=== PATIENT | female | born 1970 | race Caucasian/White ===

== ENCOUNTER 2016-12-03 10:15 | Day surgery (SDC) | payer OTHER ==
[2016-11-30 10:37] VITALS: BMI 34.7
[~2016-12-03 10:15] MED LIST: LACTATED RINGERS 1,000 ML IV SCH
[2016-12-03 10:34] VITALS: TEMP 97
[2016-12-03] MEDS ORDERED: LIDOCAINE 1% 20 ML VIAL (10MG/ML) FOR IV START INTRADERMA ONE (10:34)
--- NOTE | 2016-12-03 12:26 | P.PCN ---
Date of Procedure: 12/03/16 Procedure(s) Performed: Procedure: 1. Esophagogastroduodenoscopy and biopsy. 2. Colonoscopy and biopsy. Preoperative diagnosis: Abdominal pain and intermittent diarrhea. Postoperative diagnosis: 1. Mild gastritis. 2. Abnormal ileocecal valve. Preparation: HalfLytely prep. Sedation: Was provided by anesthesia. Brief clinical history: The patient is a 46-year-old female with history of Crohn's disease diagnosed at the time of colonoscopy in 2009 when I performed a colonoscopy during her hospital stay. The patient was treated with asacol but then lost her insurance and tapered her medications and stopped it. She apparently has done well off medications until July 2016 when she presented to the emergency room with abdominal pain. She was restarted on Azulfidine. The patient was evaluated in the office in September 2016 and earlier this month for intermittent abdominal pains and diarrhea. I scheduled this evaluation to assess for other etiology and to guide therapy of her inflammatory bowel disease. Procedure: With the patient on her left lateral decubitus position and after informed consent and adequate sedation, I passed the Olympus-GIF 160 video upper endoscope through the cricopharyngeus down the esophagus. GE junction was around 38 cm from the incisors and there was a small sliding hiatal hernia. The esophagus did not show any obvious esophagitis or complicated reflux disease. The endoscope was then passed into the stomach which was insufflated with air and inspected in detail including the retroflex view in the cardia. There was some mottling and erythema in the antrum but no ulcers or erosions. Pyloric channel, duodenal bulb, post bulbar area and descending duodenum appeared within normal limits. Because of her symptoms I obtained multiple biopsies from the duodenum, antrum and esophagus then the endoscope was withdrawn and I proceeded with the colonoscopy. Perianal area did not show any fissures or fistulas. There were no masses felt on digital rectal examination. The Olympus CFQ 160L video colonoscope was then inserted in the rectum in the usual fashion and advanced to the cecum. No obvious abnormalities were seen in the colon. The ileocecal valve appeared abnormal and somewhat friable and somewhat stenotic not allowing the advancement of the endoscope. There was a small ulceration on the ileocecal valve junction with the colon. I obtained couple blind biopsies from the terminal ileum and random biopsies from the colon before the endoscope was withdrawn. I retroflexed the endoscope in the rectum before it was withdrawn. The patient tolerated the procedure well. Plan: The patient will be seen in the office in follow-up and I anticipate considering her for biologic therapy.
[2016-12-03 12:33] VITALS: BP 132/80; PULSE 78; RESP 18
== END 2016-12-03 13:06 | disposition home or self-care (01) ==
LOC: ORWHC2ENDO 10:15
DX: K44.9 Diaphragmatic hernia without obstruction or gangrene (principal); K52.9 Noninfective gastroenteritis and colitis, unspecified; K20.9 Esophagitis, unspecified; K29.50 Unspecified chronic gastritis without bleeding; K50.90 Crohn's disease, unspecified, without complications; Z79.899 Other long term (current) drug therapy
CPT/HCPCS: 43239; 45380; 81025; 88305; 88342; 99153

== ENCOUNTER → 2017-03-11 | Outpatient (CLI) | payer OTHER ==
--- NOTE | 2017-03-11 16:48 | PN ---
DATE OF SERVICE: 03/11/2017 47-year-old lady who has been followed in the sleep center for treatment of narcolepsy. Presently, she is on treatment with Adderall 10 mg. She is taking regular Adderall and she takes it on p.r.n. basis at the time when she feels extremely ( ). With this regimen, she feels okay. [place] Sleepiness Scale today is 7. Her weight is at about the same range 217 pounds today, last visit was 215. Other medications include ( ). During the physical exam, patient in no distress. VITAL SIGNS: BP 124/90, HR 76, RR 16. Height 5 foot 1/2 inches. Weight 217, BMI 35.5. Temperature 97.4, oxygen saturation at room air 96%. HEENT: PERRLA, EOMI, Evaluation of the oropharynx showed moderately low soft palate. NECK: Supple. No JVD, Thyroid is not palpable. LUNGS: Clear to percussion and to auscultation. Good air exchange. No wheezing or rhonchi. HEART: S1, S2 regular. No murmurs, gallops, or rubs. ABDOMEN: Slightly obese. Soft and nontender. Bowel sounds are present. No organomegaly appreciated. TENTER FRAME OPERATOR: Awake, alert, and oriented x3. Cranial nerves 2 to 7 intact. There is no fasciculation or atrophy noted. No focal deficits observed. IMPRESSION: 1. Narcolepsy. 2. History of Crohn's disease. 3. Patient sometimes still has difficulties to fall asleep and sleep during the night. PLAN: 1. Continue treatment with Adderall 10 mg. 2. Watching and losing weight. 3. Continue to use some psychological techniques for difficulties to initiating and maintain sleep. 4. No driving if feeling any sleepiness. Precautions related to driving. Patient is aware about civil and criminal liability of unsafe driving. 5. Prescription for Adderall. Thank you very much for allowing me to participate in the management of your patient. Sincerely, Ponce Alatorre MD, PhD, FAASM Diplomat of [place] [employer], Sleep Medicine Board by [place] [employer] [place] [employer] Retail Route Supervisor of [facility] [place]
== END | disposition home or self-care (01) ==
LOC: SLEEP 13:24
PROVIDERS: ATTEND Internal Medicine
DX: G47.419 Narcolepsy without cataplexy (principal); Z79.899 Other long term (current) drug therapy

== ENCOUNTER → 2017-06-11 | Day surgery (SDC) | payer OTHER ==
[~2017-06-11] MED LIST changes: +GLUCAGON 1 MG/ML VIAL IM STA; -LACTATED RINGERS 1,000 ML IV SCH
[2017-06-11 10:53] VITALS: BP 127/72; PULSE 96; RESP 18
[2017-06-11 12:31] VITALS: TEMP 97.5
--- NOTE | 2017-06-12 10:37 | MR ---
EXAMINATION TYPE: MR Enterography DATE OF EXAM: 06/11/2017 COMPARISON: NONE HISTORY: 47-year-old female with abdominal pain, Crohn's, incomplete colonoscopy Technique: Multiplanar, multisequence images of the abdomen and pelvis were obtained before and after administration of 18 mL intravenous MultiHance gadolinium contrast. The patient was also administer ed VoLumen small bowel and colonic distention. Enterography protocol was utilized. FINDINGS: There is multifocal bowel inflammation. The most intense involves a 4 cm long ileal segment in the ri ght lower quadrant located 5 cm from the ileocecal valve. This shows moderate circumferential wall th ickening in the mucosal and transmural enhancement. Second area of similar but slightly lesser degree of enhancement involves the terminal ileum for a 3 cm long segment. Mild to moderate irregular ileal wall thickening and transmural enhancement involves a 5 cm long segm ent located approximately 15 cm proximal to the terminal ileum. The colon is also surveyed and there is wall thickening and mucosal and submucosal enhancement involv ing the rectum up to the distal sigmoid. The remainder of the colon appears grossly unremarkable. Scattered small stool balls are present. The appendix is normal. There is mild lower abdominal and pelvic ascites fluid likely reactive to inflammation. A tampon is present. There is arcuate configuration to the uterus with a right lateral fundal 2.1 cm focal fibroid in an intramural location. The ovaries show follicular change. Visualized kidneys, adrenal glands, incompletely visualized liver, pancreas, and spleen show no gross abnormality. No clear evidence for fistula formation and no abscess seen. No obvious lymphadenopathy. IMPRESSION: 1. Multi segmental bowel inflammation. The most intense inflammation involves a 4 cm long distal ilea l segment located 5 cm proximal to the ileocecal valve. 2. Additional moderately inflamed 3 cm long segment at the terminal ileum and a 5 cm long segment loc ated 15 cm proximal to the TI showing mild to moderate inflammation. 3. There is also wall thickening and enhancement of the rectum and distal sigmoid suggesting a concur rent inflammatory colitis. 4. Mild lower abdominal and pelvic ascites likely reactive to the inflammation. 5. No discrete fistula or abscess is identified.
== END ==
LOC: RADMRIMAIN 10:26
DX: K50.90 Crohn's disease, unspecified, without complications (principal); R18.8 Other ascites
CPT/HCPCS: 96372; 72197; 74183; J1610; A9577

== ENCOUNTER → 2017-09-15 | Outpatient (CLI) | payer OTHER ==
[2017-09-15 10:23] LABS: CH 26.3; CHCM 30.9; Hypochromasia Slight; MCH 27.8 pg (25.0-35.0); MCHC 32.5 g/dL (31.0-37.0); MCV 85.6 fL (80.0-100.0); Mean Platelet Volume 7.9; RBC 4.67 m/uL (3.80-5.40); RDW 13.8 % (11.5-15.5); WBC 5.3 k/uL (3.8-10.6)
[2017-09-15 11:06] LABS: ALT 28 U/L (9-52); AST 13 U/L (14-36); Alkaline Phosphatase 57 U/L (38-126); Anion Gap 8 mmol/L; Blood Urea Nitrogen 13 mg/dL (7-17); C Reactive Protein 5.3 mg/L (<10.0); Calcium 9.3 mg/dL (8.4-10.2); Carbon Dioxide 24 mmol/L (22-30); Chloride 108 mmol/L (98-107); Glucose 71 mg/dL (74-99); Non-African American GFR(MDRD) >60 (>60 ml/min/1.73 sqM); Potassium 4.7 mmol/L (3.5-5.1); Sodium 140 mmol/L (137-145); Total Bilirubin 0.4 mg/dL (0.2-1.3); Total Protein 6.4 g/dL (6.3-8.2)
[2017-09-15 12:28] LABS: Erythrocyte Sedimentation Rate 13 mm/hr (0-20)
== END | disposition home or self-care (01) ==
LOC: LABWHC1 09:19
DX: K50.80 Crohn's disease of both small and large intestine without complications (principal)
CPT/HCPCS: 36415; 80053; 80074; 82306; 82542; 82607; 82657; 83993; 85027; 85652; 86140; 86480

== ENCOUNTER → 2017-11-11 | Outpatient (CLI) | payer OTHER ==
[2017-11-11 09:41] LABS: Basophils % (A) 1 %; Eosinophils # (A) 0.1 k/uL (0-0.7); Eosinophils % (A) 2 %; HCT 41.4 % (34.0-46.0); HGB 12.8 gm/dL (11.4-16.0); Lymphocytes # (A) 0.4 k/uL (1.0-4.8); Lymphocytes % (A) 9 %; MCHC 30.9 g/dL (31.0-37.0); MCV 84.4 fL (80.0-100.0); Mean Platelet Volume 7.4; Monocytes # (A) 0.2 k/uL (0-1.0); Monocytes % (A) 3 %; Neutrophils # (A) 3.8 k/uL (1.3-7.7); Neutrophils % (A) 84 %; Platelet Count 383 k/uL (150-450); RBC 4.91 m/uL (3.80-5.40); RDW 14.1 % (11.5-15.5); WBC 4.5 k/uL (3.8-10.6)
[2017-11-11 10:07] LABS: Albumin 3.8 g/dL (3.5-5.0); Bilirubin, Delta 0.2 mg/dL (0.0-0.2); Bilirubin,Unconjugated 0.2 mg/dL (0.0-1.1); Total Bilirubin 0.4 mg/dL (0.2-1.3); Total Protein 6.5 g/dL (6.3-8.2)
== END | disposition home or self-care (01) ==
LOC: LABWHC1 08:53
DX: K50.80 Crohn's disease of both small and large intestine without complications (principal)
CPT/HCPCS: 36415; 80076; 82150; 83690; 85025

== ENCOUNTER → 2018-01-06 | Outpatient (CLI) | payer OTHER ==
[2018-01-06 09:48] LABS: HCT 38.8 % (34.0-46.0); HGB 12.6 gm/dL (11.4-16.0); MCH 26.9 pg (25.0-35.0); MCHC 32.4 g/dL (31.0-37.0); MCV 82.8 fL (80.0-100.0); Mean Platelet Volume 6.7; Platelet Count 418 k/uL (150-450); RBC 4.69 m/uL (3.80-5.40); RDW 13.9 % (11.5-15.5); WBC 4.5 k/uL (3.8-10.6)
[2018-01-06 10:02] LABS: ALT 21 U/L (9-52); AST 14 U/L (14-36); Albumin 3.8 g/dL (3.5-5.0); Alkaline Phosphatase 60 U/L (38-126); Amylase 48 U/L (30-110); Anion Gap 9 mmol/L; Blood Urea Nitrogen 16 mg/dL (7-17); Calcium 9.2 mg/dL (8.4-10.2); Carbon Dioxide 28 mmol/L (22-30); Chloride 105 mmol/L (98-107); Glucose 88 mg/dL (74-99); Lipase 180 U/L (23-300); Potassium 4.3 mmol/L (3.5-5.1); Sodium 142 mmol/L (137-145); Total Bilirubin 0.5 mg/dL (0.2-1.3); Total Protein 6.5 g/dL (6.3-8.2)
== END | disposition home or self-care (01) ==
LOC: LABWHC1 09:17
DX: K50.80 Crohn's disease of both small and large intestine without complications (principal)
CPT/HCPCS: 36415; 80053; 82150; 83690; 85027

== ENCOUNTER → 2018-03-22 | Outpatient (CLI) | payer OTHER ==
[2018-03-22 09:37] LABS: HCT 38.2 % (34.0-46.0); HGB 13.1 gm/dL (11.4-16.0); MCH 28.3 pg (25.0-35.0); MCHC 34.2 g/dL (31.0-37.0); MCV 82.6 fL (80.0-100.0); Mean Platelet Volume 7.1; Platelet Count 315 k/uL (150-450); RBC 4.63 m/uL (3.80-5.40); RDW 13.7 % (11.5-15.5); WBC 4.2 k/uL (3.8-10.6)
[2018-03-22 09:57] LABS: ALT 23 U/L (9-52); AST 14 U/L (14-36); Albumin 3.8 g/dL (3.5-5.0); Alkaline Phosphatase 46 U/L (38-126); Amylase 54 U/L (30-110); Anion Gap 11 mmol/L; Blood Urea Nitrogen 12 mg/dL (7-17); Carbon Dioxide 26 mmol/L (22-30); Chloride 105 mmol/L (98-107); Glucose 76 mg/dL (74-99); Lipase 146 U/L (23-300); Potassium 4.1 mmol/L (3.5-5.1); Sodium 142 mmol/L (137-145); Total Bilirubin 0.4 mg/dL (0.2-1.3); Total Protein 6.1 g/dL (6.3-8.2)
== END | disposition home or self-care (01) ==
LOC: LABWHC1 09:16
DX: K50.80 Crohn's disease of both small and large intestine without complications (principal)
CPT/HCPCS: 36415; 80053; 82150; 82306; 83690; 85027

== ENCOUNTER → 2018-04-14 | Outpatient (CLI) | payer OTHER ==
[2018-04-14 11:05] LABS: Basophils % (A) 1 %; Eosinophils # (A) 0.1 k/uL (0-0.7); Eosinophils % (A) 2 %; HCT 39.2 % (34.0-46.0); HGB 12.8 gm/dL (11.4-16.0); Lymphocytes # (A) 0.4 k/uL (1.0-4.8); Lymphocytes % (A) 9 %; MCH 27.4 pg (25.0-35.0); MCHC 32.6 g/dL (31.0-37.0); MCV 83.9 fL (80.0-100.0); Mean Platelet Volume 7.1; Monocytes # (A) 0.2 k/uL (0-1.0); Monocytes % (A) 6 %; Neutrophils # (A) 3.3 k/uL (1.3-7.7); Neutrophils % (A) 81 %; Platelet Count 306 k/uL (150-450); RBC 4.67 m/uL (3.80-5.40); RDW 13.8 % (11.5-15.5)
== END | disposition home or self-care (01) ==
LOC: LABWHC1 10:38
PROVIDERS: ATTEND Internal Medicine
DX: Z00.00 Encounter for general adult medical examination without abnormal findings (principal)
CPT/HCPCS: 36415; 84443; 85025

== ENCOUNTER → 2018-05-19 | Outpatient (CLI) | payer OTHER ==
--- NOTE | 2018-05-19 17:46 | PN ---
PROGRESS NOTE . DATE OF SERVICE: 05/19/2018 48-year-old lady has been followed in Sleep Center for treatment of narcolepsy. We have followed patient for several years with treatment to Adderall. She is taking Adderall 10 mg in situation when she needs it and when she has to drive. No any side effects of medications. No episodes of tachycardia. No changes of mood. [place] Sleepiness Scale today is 6. The usual sleep schedule is on a regular basis from 11:00 p.m. to 7 a.m. MEDICATIONS: Pristiq and Adderall. PHYSICAL EXAM: The patient in no distress. BP 118/68, HR 79, RR 16, height 5 feet 5 inches, weight 220.0, BMI 36.6, temp 97.4, oxygen saturation on room air 98%. Oropharynx moderately low position of soft palate. Neck Supple, no JVD. Thyroid is not palpable. LUNGS Clear to percussion and to auscultation. Good air exchange. No wheezing or rhonchi. HEART S1, S2 regular. No murmurs, gallops, or rubs. ABDOMEN Soft and nontender. Bowel sounds are present. No organomegaly appreciated. EXTREMITIES No clubbing or cyanosis. QUITLINE COUNSELOR Awake, alert, and oriented X3. Cranial nerves 2 to 7 intact. There is no fasciculation or atrophy. noted. No focal deficits observed. ASSESSMENT: 1. Narcolepsy without cataplexy. 2. History of Crohn's disease. 3. Depressive mood episodes for last 3 weeks. PLAN: 1. Patient will continue to take Adderall 10 mg on a p.r.n. basis for sleepiness. 2. Sleep hygiene with regular time in bed for at least 7 1/2 or 8 hours. 3. No driving if feeling sleepiness. 4. Psychological techniques for insomnia if necessary. Thank you very much for allowing me to participate in management of your patient. Sincerely, Ponce Alatorre MD, PhD, FAASM Diplomat of [place] [employer] Specialties [place] Board of Internal Medicine Maintenance Of Way Superintendent of [facility] [place] MMODL / EMILEN: [id number] /
== END | disposition home or self-care (01) ==
LOC: SLEEP 13:33
PROVIDERS: ATTEND Internal Medicine
DX: G47.419 Narcolepsy without cataplexy (principal); F32.9 Major depressive disorder, single episode, unspecified; Z87.19 Personal history of other diseases of the digestive system; Z79.899 Other long term (current) drug therapy

== ENCOUNTER → 2018-07-20 | Outpatient (CLI) | payer OTHER ==
--- NOTE | 2018-07-20 13:09 | XR ---
Cervical spine HISTORY: Frequent headaches, R 51 5 views of the cervical spine and 6 images Cervical vertebral bodies show preserved height, alignment, and bone mineralization. Disc spaces are maintained. Prevertebral soft tissues are normal. No significant foraminal encroachment evident on ob lique views the exception of some questionable narrowing at C3-4 bilaterally. Lung apices are normal. Open-mouth odontoid view is limited. IMPRESSION: Question some neural foraminal encroachment C3-4, cervical MRI may be of benefit.
== END ==
LOC: RADXRMAIN 09:42
PROVIDERS: ATTEND Internal Medicine
DX: R51 Headache (principal)
CPT/HCPCS: 72050

== ENCOUNTER → 2019-01-12 | Outpatient (CLI) | payer OTHER ==
[2019-01-12 11:02] LABS: HCT 40.4 % (34.0-46.0); HGB 13.1 gm/dL (11.4-16.0); MCHC 32.4 g/dL (31.0-37.0); MCV 86.4 fL (80.0-100.0); Mean Platelet Volume 6.7; Platelet Count 293 k/uL (150-450); RBC 4.68 m/uL (3.80-5.40); RDW 13.3 % (11.5-15.5); WBC 4.4 k/uL (3.8-10.6)
[2019-01-12 11:42] LABS: Erythrocyte Sedimentation Rate 2 mm/hr (0-20)
[2019-01-12 17:38] LABS: ALT 10 U/L (8-44); AST 17 U/L (13-35); Alkaline Phosphatase 56 U/L (41-126); C Reactive Protein <0.4 mg/dL (0.0-0.8); Calcium 9.3 mg/dL (8.7-10.3); Carbon Dioxide 26.3 mmol/L (21.6-31.8); Chloride 107 mmol/L (96-109); Glucose 84 mg/dL (70-110); Potassium 4.4 mmol/L (3.5-5.5); Sodium 139 mmol/L (135-145); Total Bilirubin 0.5 mg/dL (0.3-1.2)
== END ==
LOC: LABWHC1 10:18
DX: K50.80 Crohn's disease of both small and large intestine without complications (principal)
CPT/HCPCS: 36415; 80053; 85027; 85652; 86140

== ENCOUNTER → 2019-06-08 | Outpatient (CLI) | payer OTHER ==
--- NOTE | 2019-06-08 12:33 | SFUN ---
SLEEP CENTER FOLLOW UP NOTE DATE OF SERVICE: 06/08/2019 A 49-year-old lady had been followed in the sleep center for treatment of narcolepsy without cataplexy. The patient is on treatment with Adderall 10 mg. She usually take medication in situation when she has to drive or needs to do some precise activities. No episodes of increasing blood pressure. No episodes of tachycardia. She tolerates medication well. Her usual sleep schedule on the range from about 11 p.m. to 7 a.m. [place] Sleepiness Scale today is 5. MEDICATIONS: Adderall 10 mg and Imuran. PHYSICAL EXAMINATION: During physical exam, patient in no distress. VITAL SIGNS: BP 127/85, HR 70, RR 16, height 5 feet 5 inches, weight 215 pounds, body mass index 35.9, temperature 98.1, oxygen saturation at room air 98%. HEENT: PERRLA, EOMI. Oropharynx moderately low soft palate. NECK: Supple, no JVD. Thyroid is not palpable. LUNGS: Clear to percussion and to auscultation. Good air exchange. No wheezing or rhonchi. HEART: S1, S2 regular. No murmurs, gallops, or rubs. ABDOMEN: Soft and nontender. Bowel sounds are present. No organomegaly appreciated. EXTREMITIES: No clubbing or cyanosis. DIALYSIS CLINICAL MANAGER: Awake, alert, and oriented X3. Cranial nerves 2 to 7 intact. There is no fasciculation or atrophy. noted. No focal deficits observed. IMPRESSION: 1. Narcolepsy without cataplexy. 2. History of Crohn disease. 3. History of depression. 4. Obesity, body mass index 35.9. PLAN: 1. The patient will continue to use Adderall 10 mg a day. 2. Sleep hygiene with regular time in bed for at least 8 hours. 3. Precautions related to driving. No driving if feeling sleepiness. 4. Watching and losing weight. Sincerely, Ponce Alatorre MD, PhD, FAASM Diplomat of [place] [employer] Specialties [place] Board of Internal Medicine Thermal Technician of [facility] [place] MMODL / EMILEN: [id number] /
== END ==
LOC: SLEEP 11:06
PROVIDERS: ATTEND Internal Medicine
DX: G47.419 Narcolepsy without cataplexy (principal); K50.90 Crohn's disease, unspecified, without complications; F32.9 Major depressive disorder, single episode, unspecified; E66.9 Obesity, unspecified; Z68.35 Body mass index [BMI] 35.0-35.9, adult; Z79.899 Other long term (current) drug therapy

== ENCOUNTER → 2019-06-22 | Outpatient (CLI) | payer OTHER ==
[2019-06-22 10:55] LABS: HCT 40.6 % (34.0-46.0); HGB 13.6 gm/dL (11.4-16.0); MCH 28.9 pg (25.0-35.0); MCHC 33.5 g/dL (31.0-37.0); MCV 86.4 fL (80.0-100.0); Platelet Count 298 k/uL (150-450); RDW 14.6 % (11.5-15.5); WBC 4.9 k/uL (3.8-10.6)
[2019-06-22 13:45] LABS: Erythrocyte Sedimentation Rate 8 mm/hr (0-20)
[2019-06-22 15:36] LABS: Vitamin D 25 Hydroxy 27.2 ng/mL (30.0-100.0)
[2019-06-22 15:41] LABS: Folate, Serum 12.1 ng/mL
[2019-06-22 15:51] LABS: ALT 11 U/L (8-44); AST 12 U/L (13-35); African American GFR (CKD) 118.7 (60.0-200.0); Albumin/Globulin Ratio 2.05 (1.60-3.17); Alkaline Phosphatase 60 U/L (41-126); BUN/Creat Ratio 15.71 Ratio (12.00-20.00); C Reactive Protein <0.4 mg/dL (0.0-0.8); Calcium 9.1 mg/dL (8.7-10.3); Carbon Dioxide 22.9 mmol/L (21.6-31.8); Chloride 109 mmol/L (96-109); Glucose 89 mg/dL (70-110); Potassium 4.2 mmol/L (3.5-5.5); Sodium 141 mmol/L (135-145); Total Bilirubin 0.6 mg/dL (0.3-1.2); Total Protein 6.1 g/dL (6.2-8.2)
== END | disposition home or self-care (01) ==
LOC: LABWHC1 10:17
PROVIDERS: ATTEND Physician Assistant
DX: K50.80 Crohn's disease of both small and large intestine without complications (principal)
CPT/HCPCS: 36415; 80053; 82306; 82607; 82746; 85027; 85652; 86140

== ENCOUNTER → 2020-08-27 | Outpatient (CLI) | payer OTHER ==
[2020-08-27 15:31] LABS: HCT 41.7 % (34.0-46.0); HGB 13.5 gm/dL (11.4-16.0); MCH 29.2 pg (25.0-35.0); MCHC 32.3 g/dL (31.0-37.0); MCV 90.1 fL (80.0-100.0); Mean Platelet Volume 7.4; Platelet Count 294 k/uL (150-450); RBC 4.63 m/uL (3.80-5.40); WBC 5.5 k/uL (3.8-10.6)
[2020-08-28 01:22] LABS: Erythrocyte Sedimentation Rate 7 mm/Hr (0-20)
[2020-08-28 05:19] LABS: ALT 11 U/L (8-44); AST 15 U/L (13-35); African American GFR (CKD) 117.9 (60.0-200.0); Alkaline Phosphatase 59 U/L (41-126); BUN/Creat Ratio 18.57 Ratio (12.00-20.00); C Reactive Protein <0.4 mg/dL (0.0-0.8); Calcium 9.4 mg/dL (8.7-10.3); Carbon Dioxide 24.5 mmol/L (21.6-31.8); Chloride 109 mmol/L (96-109); Folate, Serum 15.6 ng/mL; Globulin 2.1 g/dL (1.6-3.3); Glucose 88 mg/dL (70-110); Non-African American GFR(CKD) 101.7 (60.0-200.0); Potassium 4.1 mmol/L (3.5-5.5); Sodium 141 mmol/L (135-145); Total Bilirubin 0.4 mg/dL (0.3-1.2); Total Protein 6.3 g/dL (6.2-8.2)
== END | disposition home or self-care (01) ==
LOC: LABWHC1 14:16
PROVIDERS: ATTEND Internal Medicine
DX: K50.80 Crohn's disease of both small and large intestine without complications (principal)
CPT/HCPCS: 36415; 80053; 82306; 82607; 82746; 85027; 85652; 86140

== ENCOUNTER → 2020-10-09 | Outpatient (CLI) | payer OTHER ==
--- NOTE | 2020-10-09 20:32 | SFUN ---
SLEEP CENTER FOLLOW UP NOTE DATE OF SERVICE: 10/09/2020 50-year-old lady has been followed in Sleep Center for treatment of narcolepsy. The patient is on treatment with Adderall 10 mg in the morning. With this regimen, the patient is able to control her symptoms of excessive daytime sleepiness. Today her [place] Sleepiness Scale is 8. No side effects from medications, no tachycardia, increasing blood pressure. MEDICATIONS: Adderall 10 mg once a day and Azoles 5 GF 100 mg twice a day. PHYSICAL EXAM: Patient in no distress, BP 134/84, HR 68, RR 15, height 5 feet 6 inches, weight 221 pounds, BMI 35.6, temperature 98.0, oxygen saturation on room air 98%. Neck is 13 inches in circumference. NECK: Supple, no JVD. Thyroid is not palpable. LUNGS: Clear to percussion and to auscultation. Good air exchange. No wheezing or rhonchi. HEART: S1, S2 regular. No murmurs, gallops, or rubs. ABDOMEN: Slightly obese. Soft and nontender. Bowel sounds are present. No organomegaly appreciated. EXTREMITIES: No clubbing or cyanosis. TRUCK DISPATCHER: Awake, alert, and oriented X3. Cranial nerves 2 to 7 intact. There is no fasciculation or atrophy. noted. No focal deficits observed. IMPRESSION: 1. Narcolepsy type 2. 2. History of Crohn's disease. 3. History of depression. 4. Obesity. PLAN: 1. Patient will continue to use Adderall 10 mg once a day. 2. Watching and losing weight. 3. Sleep hygiene with regular time in bed for at least 7.5 To 8 hours. 4. Precautions related to driving. 5. No driving if feeling sleepiness. 6. Daytime naps permitted. 7. Follow-up visit in 6 months. Thank you very much for allowing me to participate in management of your patient. Sincerely, Ponce Alatorre MD, PhD, FAASM Diplomat of [place] [employer] Specialties [place] Board of Internal Medicine Brasswind Instrument Repairer of [facility] [place] MMODL / EMILEN: [id number] /
== END | disposition home or self-care (01) ==
LOC: SLEEP 11:37
PROVIDERS: ATTEND Internal Medicine
DX: G47.419 Narcolepsy without cataplexy (principal); Z87.19 Personal history of other diseases of the digestive system; Z86.59 Personal history of other mental and behavioral disorders; E66.9 Obesity, unspecified; Z79.899 Other long term (current) drug therapy

== ENCOUNTER 2020-11-12 08:14 | Day surgery (SDC) | payer OTHER ==
[2020-11-08 11:23] VITALS: BMI 34.7
[~2020-11-12 08:14] MED LIST changes: -GLUCAGON 1 MG/ML VIAL IM STA; +LACTATED RINGERS 1,000 ML IV SCH; +LIDOCAINE 1% (10MG/ML) FOR IV START INTRADERMA PRN
[2020-11-12 08:45] VITALS: TEMP 97.9
[2020-11-12] MEDS ORDERED: PROPOFOL 10 MG/ML 20 ML VIAL IV ONE (09:32)
--- NOTE | 2020-11-12 10:03 | P.PCN ---
Date of Procedure: 11/12/20 Description of Procedure: BRIEF HISTORY: Patient is a 50-year-old female presenting for outpatient colonoscopy for evaluation of Crohn's disease. Patient has a history of Crohn's disease of the small and large bowel diagnosed in 2009 with no prior surgeries or fistulas reported. She did have stricturing disease noted in the past with colonoscopy in 2017 showed active disease and ileocecal valve with MR enterography showing some stricturing disease of the small bowel. Patient has been prescribed Imuran but has previously reported only partial compliance on her symptoms were active. PROCEDURE PERFORMED: Colonoscopy with biopsy. PREOPERATIVE DIAGNOSIS: Crohn's disease, last colonoscopy 2016. ESTIMATED BLOOD LOSS: Minimal. IV sedation per Anesthesia. PROCEDURE: After informed consent was obtained, the patient, was brought into the endoscopy unit. IV sedation was administered by Anesthesia under continuous monitoring. Digital rectal examination was normal. Initially the Olympus CF-190 flexible video colonoscope was then inserted in the rectum, gradually advanced into the cecum without any difficulty. Careful examination was performed as the scope was gradually being withdrawn. Ileocecal valve and the appendiceal orifice were visualized and appeared normal. Prep was excellent. Mucosa of the cecum, ascending colon, transverse colon, descending colon, sigmoid colon, and rectum appeared normal, with random biopsies taken of the right colon, transverse colon, left colon and rectum. The terminal ileum appeared overall normal with only 1 superficial ulceration noted, there is also some benign appearing stricturing approximate 7 cm from the ileocecal valve with no active disease noted except for a 1 superficial ulceration. Retroflexion was performed in the rectum and no lesions were seen. The patient tolerated the procedure well. IMPRESSION: Crohn's disease. 1 superficial terminal ileum ulcer, and some benign appearing stricturing 7 cm from the ileocecal valve, otherwise no active disease noted. Random biopsies taken of the terminal ileum, right colon, transverse colon, left colon and rectum. RECOMMENDATIONS: Findings of this examination were discussed with the patient and her family. Okay to resume diet. Okay to resume medications. Follow-up in the GI clinic as scheduled. Await pathology from biopsies. Recommend repeat colonoscopy in 2 years for Crohn's disease..
[2020-11-12 10:06] VITALS: RESP 16
[2020-11-12 10:24] VITALS: BP 113/72; PULSE 65
== END 2020-11-12 10:53 | disposition home or self-care (01) ==
LOC: ORWHC2ENDO 08:14
PROVIDERS: ATTEND Internal Medicine
DX: K50.80 Crohn's disease of both small and large intestine without complications (principal); K63.3 Ulcer of intestine; F90.9 Attention-deficit hyperactivity disorder, unspecified type; G47.419 Narcolepsy without cataplexy; Z98.890 Other specified postprocedural states; Z87.891 Personal history of nicotine dependence; Z79.899 Other long term (current) drug therapy; Z98.51 Tubal ligation status; Z87.19 Personal history of other diseases of the digestive system
CPT/HCPCS: 45380; 81025; 88305; J2704

== ENCOUNTER → 2020-11-27 | Outpatient (CLI) | payer OTHER ==
[2020-11-27 10:49] LABS: HCT 41.5 % (34.0-46.0); HGB 13.7 gm/dL (11.4-16.0); MCH 28.8 pg (25.0-35.0); MCV 87.3 fL (80.0-100.0); Mean Platelet Volume 7.3; Platelet Count 295 k/uL (150-450); RBC 4.75 m/uL (3.80-5.40); WBC 4.6 k/uL (3.8-10.6)
[2020-11-27 17:15] LABS: Erythrocyte Sedimentation Rate 6 mm/Hr (0-20)
[2020-11-27 17:58] LABS: Folate, Serum 13.3 ng/mL
[2020-11-27 18:35] LABS: ALT 12 U/L (8-44); AST 13 U/L (13-35); African American GFR (CKD) 117.9 (60.0-200.0); Albumin/Globulin Ratio 2.47 (1.60-3.17); Alkaline Phosphatase 67 U/L (41-126); BUN/Creat Ratio 15.71 Ratio (12.00-20.00); C Reactive Protein <0.4 mg/dL (0.0-0.8); Chloride 108 mmol/L (96-109); Globulin 1.7 g/dL (1.6-3.3); Glucose 91 mg/dL (70-110); Non-African American GFR(CKD) 101.7 (60.0-200.0); Potassium 4.4 mmol/L (3.5-5.5); Sodium 141 mmol/L (135-145); Total Bilirubin 0.5 mg/dL (0.2-1.2); Total Protein 5.9 g/dL (6.2-8.2)
== END | disposition home or self-care (01) ==
LOC: LABWHC1 09:53
PROVIDERS: ATTEND Internal Medicine
DX: K50.80 Crohn's disease of both small and large intestine without complications (principal)
CPT/HCPCS: 36415; 80053; 82607; 82652; 82746; 85027; 85652; 86140

== ENCOUNTER → 2021-03-27 | Outpatient (CLI) | payer OTHER ==
--- NOTE | 2021-03-27 19:47 | SFUN ---
SLEEP CENTER FOLLOW UP NOTE DATE OF SERVICE: 03/27/2021 This 51-year-old lady has been followed in Sleep Center for treatment of narcolepsy. The patient continues treatment with Adderall 10 mg in the morning. She is able to control her symptoms of excessive daytime sleepiness with this regimen, although she still feels sleepy sometimes during the day. [place] Sleepiness Scale today is 7. No significant side effects from Adderall. Recently during colonoscopy for Crohn's disease she was found to have a polyp with some abnormalities, which was removed. MEDICATIONS: 1. Adderall 10 mg once a day. 2. Azathioprine twice a day. PHYSICAL EXAMINATION: GENERAL: A pleasant patient in no distress. VITAL SIGNS: BP 123/83, HR 69, RR 15, height 5 feet 6 inches, weight 213.4 pounds, temperature 98.4, oxygen saturation at room air 98%. Body mass index 34.4, HEENT: PERRLA, EOMI. Evaluation of oropharynx showed tongue protrudes midline. NECK: Supple. No JVD. Thyroid is not palpable. LUNGS: Clear to percussion and to auscultation. Good air exchange. No wheezing or rhonchi. HEART: S1, S2 regular. No murmurs, gallops or rubs. ABDOMEN: Slightly obese. EXTREMITIES: No clubbing or cyanosis. SUPERVISOR FACEPIECE LINE: Awake, alert, and oriented X3. Cranial nerves 2 to 7 intact. There is no fasciculation or atrophy. noted. No focal deficits observed. IMPRESSION: 1. Narcolepsy. 2. Without cataplexy. 3. History of Crohn's disease. 4. Status post polypectomy from the colon. 5. History of depression. 6. Obesity. BMI 34.3. 7. Back problems. PLAN: 1. Patient will continue to take Adderall 10 mg p.o. every morning. 2. Sleep hygiene with regular time in bed for 7-1/2 to 8 hours. 3. Daytime naps permitted. 4. Extreme precautions for driving. No driving if feeling any sleepiness. The patient is aware of civil and criminal liability for unsafe driving. 5. Psychological techniques for treatment of insomnia if necessary. 6. Follow-up visit in 6 months. I spent more than 30 minutes with the patient and for documentation. Sincerely, Ponce Alatorre MD, PhD, FAASM Diplomat of [place] [employer] Medical Specialties [place] [employer] of Internal Medicine Unit Aid of [facility] [place] MMLOIL / EMILEN: [id number] /
== END ==
LOC: SLEEP 13:45
PROVIDERS: ATTEND Internal Medicine
DX: G47.419 Narcolepsy without cataplexy (principal); F32.9 Major depressive disorder, single episode, unspecified; E66.9 Obesity, unspecified; M79.89 Other specified soft tissue disorders; Z87.19 Personal history of other diseases of the digestive system; Z86.010 Personal history of colon polyps; Z68.34 Body mass index [BMI] 34.0-34.9, adult; Z79.899 Other long term (current) drug therapy; Z87.891 Personal history of nicotine dependence

== ENCOUNTER → 2021-10-08 | Outpatient (CLI) | payer OTHER ==
--- NOTE | 2021-10-08 19:19 | SFUN ---
SLEEP CENTER FOLLOW UP NOTE DATE OF SERVICE: 10/08/2021 51-year-old lady has been followed in Sleep Center for treatment of narcolepsy. The patient continued treatment with Adderall. With the medication, she controls episodes of sleepiness. [place] Sleepiness Scale is 9. Some days when she is staying at home she may stay without medication. No side effects of Adderall. MEDICATION: Adderall 10 mg once a day, 50 mg once a day. PHYSICAL EXAMINATION: GENERAL: Patient in no distress. BP 114/84, HR 70, RR 15, height 5 feet 5 inches, weight 211.8, temperature 96.9. Oxygen saturation at room air 99%. NECK: Supple, no JVD. Thyroid is not palpable. LUNGS: Clear to percussion and to auscultation. Good air exchange. No wheezing or rhonchi. HEART: S1, S2 regular. No murmurs, gallops, or rubs. ABDOMEN: Soft and nontender. Bowel sounds are present. No organomegaly appreciated. EXTREMITIES: No clubbing or cyanosis. SCRAP IRON CUTTER: Awake, alert, and oriented X3. Cranial nerves 2 to 7 intact. There is no fasciculation or atrophy. noted. No focal deficits observed. IMPRESSION: 1. Narcolepsy type 2. 2. History of Crohn's disease. 3. History of depression. 4. History of some polyps in the colon, status post polypectomy. 5. Mild obesity, BMI 35.1. 6. Back problems. PLAN: 1. Continue Adderall 10 mg in the morning. 2. Sleep hygiene with regular time in bed for at least 7-1/2 to 8 hours. 3. Precautions related to driving. No driving if feeling sleepiness. 4. Daytime naps permitted. Sincerely, Ponce Alatorre MD, PhD, FAASM Diplomat of [place] [employer] Specialties Sleep Medicine Board of [place] Board of Internal Medicine Investments Manager of [facility] [place] MMODL / IJN: [id number] /
== END ==
LOC: SLEEP 15:55
PROVIDERS: ATTEND Internal Medicine
DX: G47.411 Narcolepsy with cataplexy (principal); F32.A Depression, unspecified; E66.9 Obesity, unspecified; M53.80 Other specified dorsopathies, site unspecified; Z68.35 Body mass index [BMI] 35.0-35.9, adult; Z87.19 Personal history of other diseases of the digestive system; Z98.890 Other specified postprocedural states; Z87.891 Personal history of nicotine dependence

== ENCOUNTER → 2022-04-22 | Outpatient (CLI) | payer OTHER ==
--- NOTE | 2022-04-22 13:33 | P.PN ---
Subjective DATE: 04/22/2022 FOLLOW UP VISIT. 52-year-old lady has been followed in sleep center for treatment of narcolepsy type II. Patient is on treatment with Adderall 10 mg once a day in the morning with this regimen sometimes she feels sleepiness during the day but usually her sleepiness is under control. [place] sleepiness scale is 7. No side effects of Adderall, no episodes of cataplexy. MEDICATIONS:1. Adderall 10 mg once a day 2. Asathioprine 50 mg once a day During physical exam: GENERAL: A pleasant patient without any distress. VITAL SIGNS: BP 108/75, HR 65, RR 16, weight 201.4 patient lost 10 pounds, temperature 97.5, oxygen saturation at room air 97%. HEENT: PERRLA, EOMI.low position of soft palate. NECK: Supple. No JVD. LUNGS: Clear to percussion and to auscultation. Good air exchange. No wheezing or rhonchi. HEART: S1, S2 regular. ABDOMEN: Soft and nontender.[] EXTREMITIES: No clubbing or cyanosis. CONTRACTS OFFICER: Awake, alert, and oriented x3. No focal deficit. Impressions: 1. Narcolepsy type II 2. History of Crohn disease. 3. History of depression. 4. Status post polypectomy from colon. 5. Back problems. 6. Left hip problems. 7. Mild obesity body mass index 33.4. Patient lost 10 pounds since previous visit Plan: 1. Patient will continue to take Adderall 10 mg once a day in the morning. 2. Sleep hygiene with regular time in bed for at least 8 hours. 3. Precautions related to driving. No driving if feel any sleepiness. 4. Daytime naps permitted. 8. Follow up visit in 6 months or earlier if patient has any problems. 9. Watching weight. Thank you very much for allowing me to participate in the management of your patient. Ponce Alatorre MD, PhD, FAASM. Diplomat of [place] [employer], Sleep Medicine Board by [place] [employer] Medicine Curator of [facility] [place]
== END ==
LOC: SLEEP 13:04
PROVIDERS: ATTEND Internal Medicine
DX: G47.419 Narcolepsy without cataplexy (principal); F32.A Depression, unspecified; Z87.19 Personal history of other diseases of the digestive system; Z98.890 Other specified postprocedural states; M53.80 Other specified dorsopathies, site unspecified; E66.9 Obesity, unspecified; Z68.33 Body mass index [BMI] 33.0-33.9, adult; Z79.899 Other long term (current) drug therapy; Z87.891 Personal history of nicotine dependence

== ENCOUNTER → 2023-02-17 | Outpatient (CLI) | payer OTHER ==
--- NOTE | 2023-02-17 15:59 | P.PN ---
Subjective DATE: 02/17/2023 FOLLOW UP VISIT. Patient returned to sleep center for follow-up visit related to treatment of significant excessive daytime sleepiness secondary to narcolepsy. Patient is on treatment with Adderall 10 mg in the morning. Recently she sleeps worse because of pain in showed a left hip during the night. Here sleepiness increased. She now feel more sleepy during after known time which did not happen before. .[place] sleepiness scale is increased to 13. MEDICATIONS:1. Adderall 10 mg once a day 2. Gabapentin 100 mg as needed 3. Azathioprine 50 mg twice a day During physical exam: GENERAL: A pleasant patient without any distress. VITAL SIGNS: BP 134/87, HR 73, RR 12 , weight 205.8, temperature 97.6, oxygen saturation at room air 100% . HEENT: PERRLA, EOMI. NECK: Supple. No JVD. LUNGS: Clear to percussion and to auscultation. Good air exchange. No wheezing or rhonchi. HEART: S1, S2 regular. ABDOMEN: Soft and nontender. EXTREMITIES: No clubbing or cyanosis. SURVEILLANCE OBSERVER: Awake, alert, and oriented x3. No focal deficit. Impressions: 1. Narcolepsy type II 2. Back problems. 3. History of Crohn disease. 4. Status post polypectomy from colon. 5. History of depression. Plan: 1. Patient will continue treatment with Adderall 10 mg, we will increase dose to twice a day, 1 tablet in the morning and second tablet around 1-2 PM . 2. Sleep hygiene with regular time in bed for at least 8 hours. 3. Daytime naps permitted 4. Precautions related to driving. No driving if feel any sleepiness. Patient is aware about civil and criminal liability for unsafe driving, promised to follow recommendations. 5. Follow up visit in 4-6 months or earlier if patient has any problems. Thank you very much for allowing me to participate in the management of your patient. Ponce Alatorre MD, PhD, FAASM. Diplomat of [place] [employer], Sleep Medicine Board by [place] [employer] Press Puller of [facility] [place]
== END ==
LOC: SLEEP 15:23
PROVIDERS: ATTEND Internal Medicine
DX: G47.419 Narcolepsy without cataplexy (principal); K50.90 Crohn's disease, unspecified, without complications; M54.9 Dorsalgia, unspecified; F32.A Depression, unspecified; Z90.49 Acquired absence of other specified parts of digestive tract; Z87.891 Personal history of nicotine dependence
CPT/HCPCS: 99212

== ENCOUNTER → 2023-09-01 | Outpatient (CLI) | payer OTHER ==
--- NOTE | 2023-09-01 16:19 | P.PN ---
Subjective DATE: 09/01/2023 FOLLOW UP VISIT. Patient returned to sleep center for follow-up visit related to treatment of significant excessive daytime sleepiness secondary to narcolepsy. Patient is on treatment with Adderall 10 mg twice a day and with this regimen her alertness is on control. . [place] sleepiness scale is 9, which is borderline. MEDICATIONS:1. Azathioprine 50 mg twice a day 2. Adderall 10 mg twice a day During physical exam: GENERAL: A pleasant patient without any distress. VITAL SIGNS: BP 155/93, HR 80, RR 16 , weight 194.8, temperature 97.9, oxygen saturation at room air 100% . HEENT: PERRLA, EOMI. NECK: Supple. No JVD. LUNGS: Clear to percussion and to auscultation. Good air exchange. No wheezing or rhonchi. HEART: S1, S2 regular. ABDOMEN: Soft and nontender. EXTREMITIES: No clubbing or cyanosis. 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 No focal deficit. Impressions: 1. Narcolepsy type II 2. History of Crohn disease. 3. Blood pressure increased in the office today. 4. Back problems. 5. Status post polypectomy from the colon. 6. History of depression. Plan: 1. Patient will continue treatment with Adderall 10 mg twice a day 2. Sleep hygiene with regular time in bed for at least 8 hours. 3. Daytime naps permitted 4. Precautions related to driving. No driving if feel any sleepiness. Patient is aware about civil and criminal liability for unsafe driving, promised to follow recommendations. 5. Follow up visit in 4-6 months or earlier if patient has any problems. 6. Bradycardia during blood pressure, low sodium diet. Thank you very much for allowing me to participate in the management of your patient. Ponce Alatorre MD, PhD, FAASM. Diplomat of [place] [employer] Medicine, Sleep Medicine Board by [place] [employer] Bleach Mixer of [facility] [place]
== END ==
LOC: 3 N SLEEP 15:33
PROVIDERS: ATTEND Internal Medicine
DX: G47.419 Narcolepsy without cataplexy (principal); K50.90 Crohn's disease, unspecified, without complications; R03.0 Elevated blood-pressure reading, without diagnosis of hypertension; M51.9 Unspecified thoracic, thoracolumbar and lumbosacral intervertebral disc disorder; F32.A Depression, unspecified; Z86.010 Personal history of colon polyps; Z87.891 Personal history of nicotine dependence
CPT/HCPCS: 99212

== ENCOUNTER → 2023-10-27 | Outpatient (CLI) | payer OTHER ==
--- NOTE | 2023-10-27 14:26 | MM ---
Reason for Exam: Characterization of a palpable mass. Patient History: Menarche at age 13. First Full-Term at age 37. Late child-bearing (after 30). Perimenopausal. Risk Values: Lisset 5 year model risk: 1.5%. NCI Lifetime model risk: 11.8%. Tissue Density: There are scattered fibroglandular densities. Findings: Analyzed By CAD. There is a mass in the left breast best appreciated on MLO view approximately 22 cm from the nipple measuring up to 33 x 30 mm in the upper outer quadrant. Additionally there is some lymph nodes which may be enlarged and are only partially in the ujeun-eo-moed. Another lesion is identified in the left breast which is vague density on left CC view measuring 25 x 23 mm and approximately 19 cm from the nipple. The right breast demonstrates focal masslike fibroglandular tissue 19th wrist the nipple measuring 18 x 30 mm. Overall Assessment: Incomplete: need additional imaging evaluation, BI-RAD 0 Management: Diagnostic Breast Ultrasound of both breasts. Results were given to the patient verbally at the time of exam. Patient should continue monthly self-breast exams. A clinical breast exam by your physician is recommended on an annual basis. This exam should not preclude additional follow-up of suspicious palpable abnormalities. Note on Lisset scores and lifetime risk: 1. A Lisset score greater than 3% is considered moderate risk. If this is the case, consider specialist referral to assess eligibility for a risk reducing agent. 2. If overall lifetime risk for the development of breast cancer is 20% or higher, the patient may qualify for future screening with alternating mammogram and breast MRI. Electronically signed and approved by: Christo Trinh DO
--- NOTE | 2023-10-29 11:30 | USB ---
EXAM: US breast limited BILAT DATE OF EXAM: 10/27/2023 2:37 PM COMPARISON STUDIES: Same day mammogram PATIENT HISTORY: Female, 53 years old with history of N63. breast lump/mass; RISK CALCULATION: FINDINGS: Technique utilized:US breast limited BILAT Image; Ultrasound imaging of: Area of concern, retroareolar region and axilla. There is a mass at 1:00 14 Yimi a nipple measuring 24 x 29 x 27 mm which is taller than wide. In the axilla there is irregular shaped lymph node with an exophytic portion which may be an adjacent lymph node versus lung malignancy. Cortex with at least 2 lymph nodes possibly 3 lymph nodes which are greater than 3 mm. Right breast 10:00 at 12 cm from the nipple is a focal area of likely fibroglandular tissue. ASSESSMENT: 5 - Highly Suggestive of Malignancy RECOMMENDATION: 1. Ultrasound Core Biopsy Left . COMMENTS: Multi site biopsy of the left breast including at least one lymph node and the dominant mass. PET/CT also recommended with oncologic workup. A clinical breast exam by your physician is recommended on an annual basis and results should be correlated with mammographic findings. This exam should not preclude additional follow-up of suspicious palpable abnormalities. Results were given to the patient verbally at the time of exam. Called Dr. Merida's office with mammographic findings. Patient to make own follow up appointment. Biopsy scheduled for 11/10/23 at 10:30. REPORT FAXED TO DR. MERIDA ON 10/29/23. [facility]
== END | disposition home or self-care (01) ==
LOC: RADMAMWWP 13:42
PROVIDERS: ATTEND Family Medicine
DX: N63.21 Unspecified lump in the left breast, upper outer quadrant (principal); R92.323 Mammographic fibroglandular density, bilateral breasts
CPT/HCPCS: 77066; 76642; G0279; 77062

== ENCOUNTER → 2023-11-10 | Day surgery (SDC) | payer BC, OTHER ==
--- NOTE | 2023-11-17 14:10 | MM ---
Reason for Exam: Post Procedure Mammogram. Last screening mammogram was performed less than 1 month ago. Patient History: Menarche at age 13. First Full-Term at age 37. Late child-bearing (after 30). Perimenopausal. Risk Values: Lisset 5 year model risk: 1.5%. NCI Lifetime model risk: 11.8%. Prior Study Comparison: 10/27/2023 Bilateral MG 3D diag mammo w/cad [facility], [facility]. Tissue Density: Left: There are scattered fibroglandular densities. Pathology Description: Location: axillary tail. Marker Left Behind. Needle Type: Celero Cores: 3 Gauge: 12 Pathology Description: Location: 1 o'clock. Marker Left Behind. Needle Type: Mammotome Cores: 6 Skin Nicks: 1 Gauge: 13 The procedure of ultrasound guided core biopsy was explained to the patient. Benefits, alternatives, and risks were discussed. An informed consent was then obtained. A timeout was performed. The patient was placed in supine positioning for imaging and for the procedure. The overlying skin was prepped and draped in usual sterile fashion. Lidocaine was used as anesthetic into the skin and subcutaneous tissue up to area of concern in the left breast. A small skin jono was made with surgical scalpel. Under ultrasound guidance, a 12-gauge vacuum assisted biopsy gun device was used to obtain 6 core samples. A biopsy clip was left in lesion. Hydromark wing clip core marker was placed. The patient was placed in supine positioning for imaging and for the procedure. The overlying skin was prepped and draped in usual sterile fashion. Lidocaine was used as anesthetic into the skin and subcutaneous tissue up to area of concern in the left axilla. No skin jono was made with surgical scalpel. Under ultrasound guidance, a 12-gauge vacuum assisted biopsy gun device was used to obtain 3 core samples. A biopsy clip was left in lesion. Hydromark butterfly clip core marker was placed. The patient tolerated the procedure well without any immediate complication. The patient was kept in the radiology department for short stay after the procedure and then discharged home in stable condition. Postprocedure mammogram: The patient was transferred to mammography for physician ordered post procedure mammogram for clip placement verification. Impression: Successful ultrasound guided core biopsy of area of concern in the left breast and left axilla, full pathology results to follow. Recommendations: 1. Recommendations are pending pathology results. Pathology Results: Result: Malignant, Invasive ductal carcinoma. A. LEFT BREAST, ONE O'CLOCK, ULTRASOUND GUIDED CORE BIOPSY: Invasive carcinoma, grade 2 based on current assessment of available tissue (see Surgical Pathology Cancer Case Summary and Comment). Final assessment pending E-cadherin and prognostic staining with an addendum report to follow with stain results. B. DESIGNATED "LEFT AXILLA LYMPH NODE", ULTRASOUND GUIDED CORE BIOPSY: Positive for metastatic mammary carcinoma with focal lymphoid tissue present (see comment). ADDENDUM REPORT A. LEFT BREAST, 1:00, ULTRASOUND GUIDED CORE BIOPSY: Invasive ductal carcinoma (see comment and cancer case summary previously reported). B. LYMPH NODE, LEFT AXILLA, ULTRASOUND GUIDED CORE BIOPSY: Positive for metastatic mammary ductal carcinoma with focal lymphoid tissue present (see comment). Overall Assessment: Malignant Assessment: MG diagnostic mammo LT wo CAD. - Left: Known biopsy proven malignancy, BI-RAD 6. Management: Surgical Consultation of the left breast. Electronically signed and approved by: Alexandro Summers D.O. Radiologis
== END ==
LOC: RADUSWWP 10:18
PROVIDERS: ATTEND Family Medicine
DX: C50.212 Malignant neoplasm of upper-inner quadrant of left female breast (principal)
CPT/HCPCS: 88305; 88342; 88341; 77065; 19083; 19084; A4648

== ENCOUNTER → 2023-11-26 | Outpatient (CLI) | payer BC, OTHER ==
--- NOTE | 2023-11-30 10:58 | PE ---
EXAMINATION TYPE: PET CT fusion skull to thigh DATE OF EXAM: 11/26/2023 COMPARISON: No pertinent recent CT comparison Prior PET/CT: None at this location HISTORY: Breast cancer TECHNIQUE: Following the intravenous administration of 8.73 mCi of F-18 FDG, whole body images are p erformed from the skull base to the midthigh. Images are reviewed on the computer in the coronal, ax ial, and sagittal planes. Reconstructed rotating images are created on independent workstation and r eviewed on the computer. A localization and attenuation correction CT is performed in conjunction w ith the PET scan. DLP: 680.15 mGycm SCAN: Initial Blood glucose: 98 mg/dL Average Mediastinum SUV: 2.26 Average Liver SUV: 3.23 FINDINGS: NECK: No abnormal uptake THORAX: There are multiple hyperintense left axillary lymph nodes. Example image 71, SUV 6.44, , imag e 82, medial SUV 8.57. Mediastinal lymphadenopathy is present in the periaortic and pretracheal space s. Example image 77, periaortic lymph node 8.31, pretracheal lymph node 7.13 prominent pretracheal ly mphadenopathy is present in the precarinal space with an SUV of 9.74. Left hilar adenopathy image 82 has an SUV of 8.65. Subcarinal lymphadenopathy has an SUV of 13.32. Right infrahilar adenopathy is pr esent measuring 8.04 image 86 Patient's left breast cancer is evident with an SUV of 9.08. ABDOMEN: There are multiple scattered foci of uptake within the liver. Example image 108 SUV 10.02 me dial right upper lobe liver. This includes left lobe liver, image 124, SUV 8.94. PELVIS: Osseous metastasis within the pelvis. Soft tissue metastasis are not identified. OSSEOUS STRUCTURES: Bilateral humeral diaphyseal metastasis evident. Osseous metastasis within the lo wer cervical spine is present C7. Multiple rib metastases are present. Uptake is noted within scatter ed thoracic and lumbar vertebral bodies. Iliac metastatic lesions are present bilaterally. Some sacra l metastases are evident. Left hip metastasis and left pubic ramus metastasis present. Metaphyseal fe moral prostheses are present. LOCALIZATION CT: Mediastinal adenopathy is evident. The axillary adenopathy is evident. Patient's bio psied left breast cancer is identified. Osseous metastases are under represented on the CT although s ome of the larger lytic lesions are evident. COMPARISON: None IMPRESSION: 1. Left breast neoplasm identified with hyperintense uptake. 2. Others extensive metastasis within the mediastinum lymph nodes and left axillary lymph nodes. This is in both left and right hilar regions as well. 3. Extensive metastasis throughout the osseous structures. 4. Multiple bilateral liver lobe lesions compatible with metastasis.
== END | disposition home or self-care (01) ==
LOC: RADPETMAIN 10:19
PROVIDERS: ATTEND Family Medicine
DX: C77.9 Secondary and unspecified malignant neoplasm of lymph node, unspecified (principal); C79.51 Secondary malignant neoplasm of bone; C50.612 Malignant neoplasm of axillary tail of left female breast; K76.9 Liver disease, unspecified
CPT/HCPCS: 78815; A9552

== ENCOUNTER → 2023-12-13 | Outpatient (CLI) | payer BC, OTHER ==
--- NOTE | 2023-12-13 20:22 | MR ---
EXAMINATION TYPE: MR brain wo/w con DATE OF EXAM: 12/13/2023 COMPARISON: None HISTORY: Breast cancer, vision changes TECHNIQUE: Multiplanar, multisequence images of the brain and brainstem is performed without and with IV contras t, utilizing 8.5 mL intravenous Gadavist . FINDINGS: On the T1-weighted sagittal images, the midline structures including the craniovertebral junction rel ationships appear normal. The ventricles, basal cisterns and sulci over the convexities are within normal limits and there is n o mass effect or shift of midline structures No abnormal signal intensity is seen throughout the brain parenchyma. Based on diffusion-weighted ugo ging, there is no diffusion restriction or acute ischemic event. Following contrast administration, there is no pathological enhancement. The posterior fossa including the brainstem, fourth ventricle and cerebellar pontine angles appear no rmal. Intraorbital contents are normal and symmetric. Visualized paranasal sinuses and mastoid air cells ar e well aerated. IMPRESSION: No significant abnormality seen. No evidence of metastatic disease.
== END | disposition home or self-care (01) ==
LOC: RADMRIMAIN 19:31
PROVIDERS: ATTEND Internal Medicine
DX: C50.412 Malignant neoplasm of upper-outer quadrant of left female breast (principal); I69.998 Other sequelae following unspecified cerebrovascular disease
CPT/HCPCS: 70553; A9585

== ENCOUNTER → 2023-12-15 | Outpatient (CLI) | payer BC, OTHER ==
--- NOTE | 2023-12-16 10:57 | CA ---
Transthoracic Echo Report Name: Svetlana Manuel Age: 53 Gender: F : 1970 Exam Date: 12/15/2023 15:33 Exam Location: [facility] Ht (in): 66 Wt (lb): 188 Ordering Physician: Quique Christopher MD Attending/Referring Phys: Co Founder And Chief Strategy Officer Evi Licea RDCS Procedure CPT: Indications: [id number] Cardiac Hx: Technical Quality: Good Contrast 1: Total Dose (mL): Contrast 2: Total Dose (mL): MEASUREMENTS (Male / Female) Normal Values 2D ECHO LV Diastolic Diameter PLAX 4.6 cm 4.2 - 5.9 / 3.9 - 5.3 cm LV Systolic Diameter PLAX 3.3 cm IVS Diastolic Thickness 1.1 cm 0.6 - 1.0 / 0.6 - 0.9 cm LVPW Diastolic Thickness 1.1 cm 0.6 - 1.0 / 0.6 - 0.9 cm LV Relative Wall Thickness 0.5 RV Internal Dim ED PLAX 3.3 cm LA Systolic Diameter LX 3.9 cm 3.0 - 4.0 / 2.7 - 3.8 cm LV Diastolic Volume MOD 4C 144.1 cm??? LV Systolic Volume MOD 4C 69.4 cm??? LV Ejection Fraction MOD 4C 51.8 % LV Cardiac Index MOD 4C 2960.1 cm???/min???m??? LV Diastolic Length 4C 8.3 cm LV Systolic Length 4C 6.9 cm LV Diastolic Volume MOD 2C 120.1 cm??? LV Systolic Volume MOD 2C 60.0 cm??? LV Ejection Fraction MOD 2C 50.0 % LV Cardiac Index MOD 2C 2381.3 cm???/min???m??? LV Diastolic Length 2C 8.5 cm LV Systolic Length 2C 6.9 cm LA Volume 48.7 cm??? 18 - 58 / 22 - 52 cm??? LA Volume Index 24.1 cm???/m??? 16 - 28 cm???/m??? M-MODE Aortic Root Diameter MM 3.2 cm MV E Point Septal Separation 1.3 cm AV Cusp Separation MM 2.2 cm DOPPLER AV Peak Velocity 131.8 cm/s AV Peak Gradient 7.0 mmHg MV Area PHT 2.7 cm??? Mitral E Point Velocity 88.5 cm/s Mitral A Point Velocity 79.3 cm/s Mitral E to A Ratio 1.1 MV Deceleration Time 284.1 ms MV E' Velocity 7.7 cm/s Mitral E to MV E' Ratio 11.5 TR Peak Velocity 200.6 cm/s TR Peak Gradient 16.1 mmHg Right Ventricular Systolic Press 21.1 mmHg FINDINGS Left Ventricle Left ventricular ejection fraction is estimated at 55-60 %. Mildly increased septal wall thickness. Mildly increased posterior wall thickness. Left ventricular cavity size normal. Right Ventricle Mild right ventricular dilatation. Right ventricular systolic pressure within normal limits. Right Atrium Normal right atrial size. Left Atrium Normal left atrial size. Mitral Valve Structurally normal mitral valve. No mitral stenosis, regurgitation or prolapse. Aortic Valve Trileaflet aortic valve. No aortic valve stenosis or regurgitation. Tricuspid Valve Structurally normal tricuspid valve. Mild tricuspid regurgitation. Pulmonic Valve Structurally normal pulmonic valve. No pulmonic regurgitation. Pericardium No pericardial effusion. Aorta Normal size aortic root and proximal ascending aorta. CONCLUSIONS Left ventricular ejection fraction 55-60% Mild increased left ventricular wall thickness RVSP 21 No mitral regurgitation Mild tricuspid regurgitation Previewed by: Dr. Kadeem Kee DO (Electronically Signed) Final Date: 16 December 2023 10:56
== END | disposition home or self-care (01) ==
LOC: RADECHMAIN 15:31
PROVIDERS: ATTEND Internal Medicine
DX: Z01.818 Encounter for other preprocedural examination (principal); I36.1 Nonrheumatic tricuspid (valve) insufficiency; I51.89 Other ill-defined heart diseases
CPT/HCPCS: 93306

== ENCOUNTER → 2024-03-03 | Outpatient (CLI) | payer BC ==
--- NOTE | 2024-03-03 19:28 | US ---
EXAMINATION TYPE: US venous doppler duplex UE LT DATE OF EXAM: 03/03/2024 COMPARISON: NONE CLINICAL INDICATION: Female, 54 years old with history of R22.32 LOCALIZED SWELLING, MASS AND LUMP, L EFT upper extremity. Stage 4 breast CA with lymph node involvement, swelling in left arm, no h/o dvt, on chemo SIDE PERFORMED: Left Left Arm: Negative for DVT IMPRESSION: Grayscale, color doppler, spectral doppler imaging performed of the deep veins of the upper extremiti es. There is normal flow, compressibility and vascular waveforms. Left thyroid is negative for intravenous thrombosis.
== END | disposition home or self-care (01) ==
LOC: RADUSWWP 10:01
PROVIDERS: ATTEND Internal Medicine
DX: R22.32 Localized swelling, mass and lump, left upper limb (principal); C50.912 Malignant neoplasm of unspecified site of left female breast; M79.622 Pain in left upper arm; M79.89 Other specified soft tissue disorders

== ENCOUNTER 2024-03-06 11:52 | Emergency (ER) | payer BC ==
[2024-03-06 12:06] VITALS: RESP 20; TEMP 97.2
--- NOTE | 2024-03-06 12:37 | ED ---
General Adult HPI - General Chief complaint: Abdominal Pain Stated complaint: Pain, cancer PT Time Seen by Provider: 03/06/24 12:00 Source: patient, RN notes reviewed, old records reviewed Mode of arrival: ambulatory Limitations: no limitations - History of Present Illness Initial comments: This is a 54-year-old female with a past medical history significant for Crohn's and stage IV breast cancer. Patient had chemo on . Patient states she started having abdominal pain on Wednesday. Patient states it feels typical of her Crohn's but since it is not going away she decided to come to the emergency department to be evaluated. Patient states she has had improvement over the last couple of days but is still there so she wanted to be evaluated. Patient denies any vomiting. Patient is any diarrhea or bloody stools. Patient [place] any chest pain difficulty breathing shortness of breath. Patient has any fever or chills. - Related Data Home Medications Medication Instructions Recorded Confirmed Loperamide HCl [Imodium A-D] 2 - 4 mg PO QID PRN 03/06/24 03/06/24 traMADol HCL 50 mg PO Q8H PRN 03/06/24 03/06/24 Previous Rx's Medication Instructions Recorded predniSONE [Deltasone] 40 mg PO DAILY #10 tab 03/06/24 Allergies Allergy/AdvReac Type Severity Reaction Status Date / Time No Known Allergies Allergy Verified 03/06/24 14:49 Review of Systems ROS Statement: Those systems with pertinent positive or pertinent negative responses have been documented in the HPI. ROS Other: All systems not noted in ROS Statement are negative. Past Medical History Past Medical History: Cancer Additional Past Medical History / Comment(s): crohns disease, narcolepsy, VARICOSE VEIN, Breast CA. History of Any Multi-Drug Resistant Organisms: None Reported Past Surgical History: Section Additional Past Surgical History / Comment(s): colonoscopy Past Anesthesia/Blood Transfusion Reactions: No Reported Reaction Past Psychological History: No Psychological Hx Reported Smoking Status: Former smoker Past Alcohol Use History: Occasional Past Drug Use History: Marijuana - Past Family History Mother Family Medical History: No Reported History General Exam - General Exam Comments Initial Comments: GENERAL: Patient is well-developed and well-nourished. Patient is nontoxic and well- hydrated and is in mild distress. ENT: Neck is soft and supple. No significant lymphadenopathy is noted. Oropharynx is clear. Moist mucous membranes. Neck has full range of motion without e liciting any pain. T EYES: The sclera were anicteric and conjunctiva were pink and moist. Extraocular movements were intact and pupils were equal round and reactive to light. Eyelids were unremarkable. PULMONARY: Unlabored respirations. Good breath sounds bilaterally. No audible rales rhonchi or wheezing was noted. CARDIOVASCULAR: There is a regular rate and rhythm without any murmurs gallops or rubs. ABDOMEN: Mild right upper quadrant abdominal pain SKIN: Skin is clear with no lesions or rashes and otherwise unremarkable. NEUROLOGIC: Patient is alert and oriented x3. Cranial nerves II through XII are grossly intact. Motor and sensory are also intact. Normal speech, volume and content. Symmetrical smile. MUSCULOSKELETAL: Normal extremities with adequate strength and full range of motion. LYMPHATICS: No significant lymphadenopathy is noted PSYCHIATRIC: Normal psychiatric evaluation. Limitations: no limitations Course Vital Signs 03/06/24 11:55 Temperature 97.2 F L Pulse Rate 58 L Respiratory 20 Rate Blood Pressure 152/95 O2 Sat by Pulse 96 Oximetry Medical Decision Making - Medical Decision Making Was pt. sent in by a medical professional or institution (, PA, DIRECTOR OF CONVENTION SERVICES, urgent care, hospital, or senior care...) When possible be specific @ -No Did you speak to anyone other than the patient for history (EMS, parent, family, police, friend...)? What history was obtained from this source @ -No Did you review nursing and triage notes (agree or disagree)? Why? @ -I reviewed and agree with nursing and triage notes Were old charts reviewed (outside hosp., previous admission, EMS record, old EKG, old radiological studies, urgent care reports/EKG's, senior care records)? Report findings @ -I reviewed prior lab work on this patient compared to today's I saw no acute abnormalities Differential Diagnosis (chest pain, altered mental status, abdominal pain women, abdominal pain men, vaginal bleeding, weakness, fever, dyspnea, syncope, headache, dizziness, GI bleed, back pain, seizure, CVA, palpatations, mental health, musculoskeletal)? @ -Differential Abdominal Pain Men: Appendicitis, cholecystitis, diverticulosis, ischemic bowel, pancreatitis, hepatitis, UTI, gastroenteritis, AAA, incarcerated hernia, bowel obstruction, constipation, inflammatory bowel, hepatitis, peptic ulcer disease, splenic infarction, perforated viscus, testicular torsion, this is not meant to be an all-inclusive list EKG interpreted by me (3pts min.). @ -As above X-rays interpreted by me (1pt min.). @ -None done CT interpreted by me (1pt min.). @ -None done U/S interpreted by me (1pt. min.). @ -None done What testing was considered but not performed or refused? (CT, X-rays, U/S, labs)? Why? @ -None What meds were considered but not given or refused? Why? @ -None Did you discuss the management of the patient with other professionals (professionals i.e. , PA, DIRECTOR OF CONVENTION SERVICES, lab, RT, psych nurse, vp digital marketing social media and crm, customer leader, teacher, air crew officer, keycase assembler)? Give summary @ -I spoke with the patient's oncologist and they were in agreement with giving the patient some steroids until he could follow-up Was smoking cessation discussed for >3mins.? @ -No Was critical care preformed (if so, how long)? @ -No Were there social determinants of health that impacted care today? How? (Homelessness, low income, unemployed, alcoholism, drug addiction, transportation, low edu. Level, literacy, decrease access to med. care, fdc, re hab)? @ -No Was there de-escalation of care discussed even if they declined (Discuss DNR or withdrawal of care, Hospice)? DNR status @ -No What co-morbidities impacted this encounter? (DM, HTN, Smoking, COPD, CAD, Cancer, CVA, ARF, Chemo, Hep., AIDS, mental health diagnosis, sleep apnea, morbid obesity)? @ -None Was patient admitted / discharged? Hospital course, mention meds given and route, prescriptions, significant lab abnormalities, going to OR and other pertinent info. @ -Patient's lab work showed no acute abnormality. I went back and reevaluated the patient she no longer had any abdominal pain with palpation though she did have a little bit of achiness. Patient states she was hungry for the first time in a while and wanted to eat patient we discharged home on steroids after she received 125 mg of steroids here Undiagnosed new problem with uncertain prognosis? @ -No Drug Therapy requiring intensive monitoring for toxicity (Heparin, Nitro, Insulin, Cardizem)? @ -No Were any procedures done? @ -No Diagnosis/symptom? @ -Exacerbation of Crohn's Acute, or Chronic, or Acute on Chronic? @ -Acute Uncomplicated (without systemic symptoms) or Complicated (systemic symptoms)? @ -Complicated Side effects of treatment? @ -No Exacerbation, Progression, or Severe Exacerbation? @ -No Poses a threat to life or bodily function? How? (Chest pain, USA, CA, pneumonia, PE, COPD, DKA, ARF, appy, cholecystitis, CVA, Diverticulitis, Homicidal, Suicidal, threat to staff... and all critical care pts) @ -No - Lab Data Result diagrams: 03/06/24 14:03 03/06/24 14:03 Lab Results 03/06/24 03/06/24 03/06/24 Range/Units 14:03 14:03 14:03 WBC 2.4 L (3.8-10.6) k/uL RBC 3.90 (3.80-5.40) m/uL Hgb 10.9 L (11.4-16.0) gm/dL Hct 34.7 (34.0-46.0) % MCV 88.8 (80.0-100.0) fL MCH 27.9 (25.0-35.0) pg MCHC 31.5 (31.0-37.0) g/dL RDW 16.7 H (11.5-15.5) % Plt Count 294 (150-450) k/uL MPV 7.4 Neutrophils % 87 % Lymphocytes % 7 % Monocytes % 4 % Eosinophils % 1 % Basophils % 1 % Neutrophils # 2.1 (1.3-7.7) k/uL Lymphocytes # 0.2 L (1.0-4.8) k/uL Monocytes # 0.1 (0-1.0) k/uL Eosinophils # 0.0 (0-0.7) k/uL Basophils # 0.0 (0-0.2) k/uL Anisocytosis Slight Sodium 136 L (137-145) mmol/L Potassium 3.2 L (3.5-5.1) mmol/L Chloride 105 (98-107) mmol/L Carbon Dioxide 27 (22-30) mmol/L Anion Gap 4 mmol/L BUN 5 L (7-17) mg/dL Creatinine 0.45 L (0.52-1.04) mg/dL Est GFR (CKD-EPI)AfAm >90 (>60 ml/min/1.73 sqM) Est GFR (CKD-EPI)NonAf >90 (>60 ml/min/1.73 sqM) Glucose 105 H (74-99) mg/dL Plasma Lactic Acid Christopher 0.7 (0.7-2.0) mmol/L Calcium 8.6 (8.4-10.2) mg/dL Total Bilirubin 1.0 (0.2-1.3) mg/dL AST 18 (14-36) U/L ALT 16 (4-34) U/L Alkaline Phosphatase 100 (38-126) U/L Total Protein 5.6 L (6.3-8.2) g/dL Albumin 3.3 L (3.5-5.0) g/dL Amylase 49 (30-110) U/L Lipase 204 (23-300) U/L Disposition Clinical Impression: Exacerbation of Crohn's disease Disposition: HOME SELF-CARE Condition: Good Prescriptions: predniSONE [Deltasone] 40 mg PO DAILY #10 tab Is patient prescribed a controlled substance at d/c from ED?: No Referrals: Selena Corley DO [Primary Care Provider] - 1-2 days Time of Disposition: 15:52
[2024-03-06 14:15] LABS: Anisocytosis Slight; Basophils % (A) 1 %; Eosinophils % (A) 1 %; HCT 34.7 % (34.0-46.0); HGB 10.9 gm/dL (11.4-16.0); Lymphocytes # (A) 0.2 k/uL (1.0-4.8); Lymphocytes % (A) 7 %; MCH 27.9 pg (25.0-35.0); MCHC 31.5 g/dL (31.0-37.0); MCV 88.8 fL (80.0-100.0); Mean Platelet Volume 7.4; Monocytes # (A) 0.1 k/uL (0-1.0); Monocytes % (A) 4 %; Neutrophils # (A) 2.1 k/uL (1.3-7.7); Neutrophils % (A) 87 %; Platelet Count 294 k/uL (150-450); RDW 16.7 % (11.5-15.5); WBC 2.4 k/uL (3.8-10.6)
[2024-03-06] MEDS: KETOROLAC 15 MG/ML 1 ML VIAL IVP STA (14:17)
[2024-03-06] MEDS: SODIUM CHLORIDE 0.9% 1,000 ML IV STA (14:18)
[2024-03-06 14:36] LABS: ALT 16 U/L (4-34); AST 18 U/L (14-36); African American GFR (CKD) >90 (>60 ml/min/1.73 sqM); Albumin 3.3 g/dL (3.5-5.0); Alkaline Phosphatase 100 U/L (38-126); Amylase 49 U/L (30-110); Anion Gap 4 mmol/L; Blood Urea Nitrogen 5 mg/dL (7-17); Calcium 8.6 mg/dL (8.4-10.2); Carbon Dioxide 27 mmol/L (22-30); Chloride 105 mmol/L (98-107); Glucose 105 mg/dL (74-99); Lipase 204 U/L (23-300); Non-African American GFR(CKD) >90 (>60 ml/min/1.73 sqM); Potassium 3.2 mmol/L (3.5-5.1); Sodium 136 mmol/L (137-145); Total Protein 5.6 g/dL (6.3-8.2)
[2024-03-06] MEDS: POTASSIUM CHLORIDE ER 20 MEQ TAB.ER PO STA (15:48)
[2024-03-06 16:09] VITALS: BP 152/93; PULSE 76
[2024-03-06] MEDS: methylPREDNISolone SOD SUCCI 125 MG/2 ML VIAL IV STA (16:13)
== END 2024-03-06 16:34 | disposition home or self-care (01) ==
LOC: EC 11:52
DX: K50.90 Crohn's disease, unspecified, without complications (principal); Z87.891 Personal history of nicotine dependence; Z85.3 Personal history of malignant neoplasm of breast
CPT/HCPCS: 36415; 80053; 82150; 83605; 83690; 85025; 99284; 96374; 96375; 96361 ×2; J1885; J2919

== ENCOUNTER → 2024-03-30 | Outpatient (CLI) | payer BC ==
[2024-03-30 09:22] LABS: African American GFR (CKD) >90 (>60 ml/min/1.73 sqM); Blood Urea Nitrogen 16 mg/dL (7-17); Non-African American GFR(CKD) >90 (>60 ml/min/1.73 sqM)
--- NOTE | 2024-03-30 11:36 | CT ---
EXAMINATION TYPE: CT abdomen pelvis w con DATE OF EXAM: 03/30/2024 COMPARISON: PET CT reviewed from 11/26/2023 INDICATION: abd pain DLP: 1235 mGycm, Automated exposure control for dose reduction was used. CONTRAST: 100 mL of Isovue 300. Study performed with Oral Contrast TECHNIQUE: Axial images were obtained from above the diaphragm to the pubic rami in the axial plane a t 5 mm thick sections. Reconstructed images are reviewed on the computer in the coronal plane. FINDINGS: Limited CT sections are obtained the lung bases. The lung bases are clear. CT ABDOMEN: Liver: Multiple hypodense lesions scattered through the liver compatible with metastatic disease. Spleen: Normal Pancreas: Normal Adrenal glands: The adrenal glands are normal. Gallbladder: Unremarkable. Kidneys: No masses are evident. No hydronephrosis is present. No cysts are present. Aorta: Normal Inferior vena cava: Normal. CT PELVIS: There is focal areas of thickening through the distal ileum and terminal ileum. Adjacent inflammatory changes not identified. Example image series 3 image 57, series 5 image 29. Milder ill-defined thick ening is within the mid small bowel loops within the left hemipelvis. There are loops of bowel lackin g oral contrast limiting their evaluation. Appendix: Normal as visualized. Urinary bladder: Normal. Genitourinary structures: Uterus appears normal. Adnexa are unremarkable Osseous structures: There is some scattered lytic areas within the spine. These are not as readily ap parent as on the PET/CT. There are some subcutaneous nodules present. A few small lymph nodes are in the right inguinal region . These are not as apparent as on the PET/CT. IMPRESSION: 1. Focal thickening within short segments of distal ileum can be compatible with Crohn's disease. 2. Milder thickening within the mid left hemipelvis small bowel loops may be present. 3. Multiple metastatic lesions including liver, osseous structures, and subcutaneous tissues. Please also see previous PET/CT report.
== END | disposition home or self-care (01) ==
LOC: RADCTMAIN 08:35
PROVIDERS: ATTEND Internal Medicine Gastroenterology
DX: C78.7 Secondary malignant neoplasm of liver and intrahepatic bile duct (principal); C79.51 Secondary malignant neoplasm of bone; C79.89 Secondary malignant neoplasm of other specified sites; K63.89 Other specified diseases of intestine; N94.89 Other specified conditions associated with female genital organs and menstrual cycle
CPT/HCPCS: 82565; 84520; 74177; 36415; Q9967

== ENCOUNTER → 2024-04-09 | Outpatient (CLI) | payer BC ==
--- NOTE | 2024-04-09 17:24 | PE ---
EXAMINATION TYPE: PET CT fusion skull to thigh DATE OF EXAM: 04/09/2024 COMPARISON: CT abdomen and pelvis 03/30/2024 Prior PET/CT: 11/26/2023 HISTORY: Breast cancer TECHNIQUE: Following the intravenous administration of 12.98 mCi of F-18 FDG, whole body images are performed from the skull base to the midthigh. Images are reviewed on the computer in the coronal, a xial, and sagittal planes. Reconstructed rotating images are created on independent workstation and reviewed on the computer. A localization and attenuation correction CT is performed in conjunction with the PET scan. DLP: 826.05 mGycm SCAN: Subsequent Blood glucose: 95 mg/dL Average Mediastinum SUV: 1.78 Average Liver SUV: 2.31 FINDINGS: HEAD and NECK: No suspicious uptake THORAX: No suspicious uptake ABDOMEN: No suspicious uptake. PELVIS: No abnormal uptake OSSEOUS STRUCTURES: No abnormal uptake LOCALIZATION CT: No suspicious abnormality. Previous hypodensities within the liver are not readily a pparent. There is some mild osseous changes present which may reflect the previous metastatic lesions . Suspicious uptake not identified. COMPARISON: Previous uptake within the osseous structures and within the liver are not apparent on th e current examination IMPRESSION: 1. Suspicious uptake to suggest residual or recurrent metastatic disease is not identified. 2. Previous abnormal uptake not identified on the current examination.
== END | disposition home or self-care (01) ==
LOC: RADPETMAIN 10:57
PROVIDERS: ATTEND Internal Medicine
DX: C50.419 Malignant neoplasm of upper-outer quadrant of unspecified female breast (principal)
CPT/HCPCS: 78815; A9552

== ENCOUNTER → 2024-06-19 | Outpatient (CLI) | payer BC ==
--- NOTE | 2024-07-11 15:24 | MR ---
Patient: Stuart Cano Ordering Physician: Unknown, Unknown ID: [id number] Phone, Pager: Phone: N/A Pager: N/A : 09/01/1941 Age/Gender: 82Y, M Primary Location: N/A Procedure: MR brain wo con Study Date: 06/19/2024 12:46:34 PM EXAMINATION TYPE: MR brain wo con DATE OF EXAM: 06/19/2024 4:49 PM CLINICAL INDICATION: Memory loss COMPARISON: 02/17/2024. TECHNIQUE: Multi planar, multi sequence imaging was performed through the brain including: T1, T2, In version recovery, Diffusion weighted imaging, and gradient echo imaging. No gadolinium was given. FINDINGS: Restricted diffusion within the left occipital lobe with white matter changes. Mild cerebra l atrophy with proportional dilation of ventricular system. Scattered foci of high T2 signal intens ity are seen within the periventricular white matter. Midline structures show no abnormality. The merritt sceptibility weighted images demonstrate blooming artifact along the cortex within the left occipital lobe noted suggesting hemosiderin deposition from prior hemorrhage. The bone marrow signal is within normal limits. Paranasal sinuses and mastoid air cells: No significant paranasal sinus disease. Visualized orbits: Orbital contents are intact. IMPRESSION: 1. Acute/subacute CVA involving the left occipital lobe. 2. Nonspecific white matter changes, likely secondary to small vessel ischemic disease.
== END | disposition home or self-care (01) ==
LOC: RADMRIMAIN 14:30
PROVIDERS: ATTEND Internal Medicine
DX: C50.419 Malignant neoplasm of upper-outer quadrant of unspecified female breast (principal); G47.419 Narcolepsy without cataplexy; I63.9 Cerebral infarction, unspecified; K50.90 Crohn's disease, unspecified, without complications
CPT/HCPCS: 70553; A9585

== ENCOUNTER → 2024-06-22 | Outpatient (CLI) | payer BC ==
--- NOTE | 2024-07-12 12:10 | PE ---
Patient: Svetlana Manuel Ordering Physician: Unknown, Unknown ID: [id number] Phone, Pager: Phone: N/A David mayelin: N/A : 1970 Age/Gender: 54Y, F Primary Location: N/A Procedure: PET CT fusion skull to th igh Study Date: 06/22/2024 10:54:00 AM EXAMINATION TYPE: PET CT fusion skull to thigh DATE OF EXAM: 06/24/2024 CLINICAL INDICATION: Breast cancer TECHNIQUE: Following the intravenous administration of 10.4 mCi of F-18 FDG, whole body images are performed from the skull base to the midthigh. Images are reviewed on the computer in the coronal, a xial, and sagittal planes. Reconstructed rotating images are created on independent workstation and reviewed on the computer. A non-contrast CT is performed in conjunction with the PET scan. Glucose level 82 mg/dL CT DLP: 826 mGycm, Automated exposure control for dose reduction was used. COMPARISON: CT 03/30/2024, PET/CT 04/20/2024, MRI: None FINDINGS: Mediastinal SUV mean is 1.5. Hepatic parenchyma SUV mean is 2.3. SKULL BASE AND NECK: No suspicious radiotracer activity. CHEST, MEDIASTINUM, AND HILAR REGION: * Right pulmonary hilum lymph node max SUV 3.9 2.2. * Edematous thickened breast skin on the left with edema throughout the breast. Measuring up to 15 m m in thickness Breast mass with central biopsy clip versus calcification present on the left Max SUV 1.9 previously 1.7. ABDOMEN AND PELVIS: No suspicious radiotracer activity. MUSCULOSKELETAL STRUCTURES: No suspicious radiotracer activity. Focal uptake in the right posterior s houlder max SUV 3.[address]: Chest wall [id number] with tip terminating in the superior vena cava. Anasarca of the so ft tissues. Degenerative changes of the hips bilaterally.r IMPRESSION: 1. Single right pulmonary hilum lymph node which demonstrates increased metabolic activity. This jamie ginally on 11/26/2023 had increased metabolic activity, findings concerning for recurrent neoplasm. 2. Posttreatment changes left breast with skin thickening/edema and diffuse anasarca.
== END | disposition home or self-care (01) ==
LOC: RADPETMAIN 10:00
PROVIDERS: ATTEND Internal Medicine
DX: C50.612 Malignant neoplasm of axillary tail of left female breast (principal); R23.4 Changes in skin texture
CPT/HCPCS: 78815; A9552

== ENCOUNTER → 2024-09-14 | Outpatient (CLI) | payer BC ==
[2024-09-14 15:51] VITALS: BP 137/86; PULSE 84; RESP 18; TEMP 97.8
--- NOTE | 2024-09-14 18:09 | P.PROGSL ---
Subjective DATE: 09/14/2024 FOLLOW UP VISIT. Patient returned to sleep center for follow-up visit related to treatment of significant excessive daytime sleepiness secondary to narcolepsy. Patient is on treatment with Adderall 10 mg once a day as needed. Prospect sleepiness scale is increased to 12, but patient was able to control her alertness. MEDICATIONS: Please see below During physical exam: GENERAL: A pleasant patient without any distress. VITAL SIGNS: Please see below. HEENT: PERRLA, EOMI. NECK: Supple. No JVD. LUNGS: Clear to percussion and to auscultation. Good air exchange. No wheezing or rhonchi. HEART: S1, S2 regular. ABDOMEN: Soft and nontender. EXTREMITIES: No clubbing or cyanosis. BUCKET WASH OPERATOR: Awake, alert, and oriented x3. No focal deficit. Impressions: 1. Narcolepsy type II 2. History of Crohn disease. 3. History of breast cancer. 4. Back problems. 5. History of depression. Plan: 1. Patient will continue treatment with Adderall 10 mg once a day as needed. 2. Sleep hygiene with regular time in bed for at least 8 hours. 3. Daytime naps permitted 4. Precautions related to driving. No driving if feel any sleepiness. Patient is aware about civil and criminal liability for unsafe driving, promised to follow recommendations. 5. Follow up visit in 6 months or earlier if patient has any problems. Thank you very much for allowing me to participate in the management of your patient. Ponce Alatorre MD, PhD, FAASM. Diplomat of [place] [employer], Sleep Medicine Board by [place] [employer] [facility] [place] Objective - Vital Signs Vital Signs: Vital Signs Temp 97.8 F 09/14/24 15:50 Pulse 84 09/14/24 15:50 Resp 18 09/14/24 15:50 BP 137/86 09/14/24 15:50 Pulse Ox 98 09/14/24 15:50 FiO2 Home Medications: Home Medications Medication Instructions Recorded Confirmed Type Loperamide HCl [Imodium A-D] 2 - 4 mg PO QID PRN 03/06/24 03/06/24 History predniSONE [Deltasone] 40 mg PO DAILY #10 tab 03/06/24 Rx traMADol HCL 50 mg PO Q8H PRN 03/06/24 03/06/24 History
== END ==
LOC: 3 N SLEEP 14:44
PROVIDERS: ATTEND Internal Medicine
DX: G47.419 Narcolepsy without cataplexy (principal); M53.9 Dorsopathy, unspecified; F32.A Depression, unspecified; Z87.19 Personal history of other diseases of the digestive system; Z85.3 Personal history of malignant neoplasm of breast; Z87.891 Personal history of nicotine dependence
CPT/HCPCS: 99212

== ENCOUNTER 2024-09-15 19:19 | Emergency (ER) | payer BC ==
[2024-09-15 19:39] VITALS: RESP 18
--- NOTE | 2024-09-15 21:31 | US ---
EXAMINATION TYPE: US venous doppler duplex LE LT DATE OF EXAM: 09/15/2024 9:04 PM COMPARISON: US 2016 CLINICAL INDICATION: Female, 54 years old with history of pain; Left leg pain, TECHNIQUE: The lower extremity deep venous system is examined utilizing real time linear array sonog barbara with graded compression, color doppler sonography, and spectral doppler. SIDE PERFORMED: Left FINDINGS: VESSELS IMAGED: Common Femoral Vein Deep Femoral Vein Greater Saphenous Vein * Femoral Vein Popliteal Vein Small Saphenous Vein * Proximal Calf Veins (* superficial vessels) Left Leg: Appears negative for DVT IMPRESSION: 1 left lower extremity ultrasound negative for deep venous thrombosis. [facility], , 09/15/2024 9:29 PM
--- NOTE | 2024-09-15 21:48 | ED ---
Extremity Problem HPI - General Chief complaint: Extremity Problem,Nontraumatic Stated complaint: Left leg swelling and pain Time Seen by Provider: 09/15/24 20:00 Source: patient Mode of arrival: ambulatory Limitations: no limitations - History of Present Illness Initial comments: 54-year-old female presenting with chief complaint of left knee pain. Patient was sent in from urgent care to rule out DVT. Patient has had pain in the left knee for 1 week. She denies any injury or trauma. She also noticed some swelling at the level of the knee and lower leg. No discoloration. She has pain with range of motion as well. No chest pain or difficulty breathing. No abdominal pain. No history of DVT. No blood thinners, recent surgery or travel, hormone use. Patient had an x-ray performed urgent care which was negative according to her - Related Data Home Medications Medication Instructions Recorded Confirmed Loperamide HCl [Imodium A-D] 2 - 4 mg PO QID PRN 03/06/24 03/06/24 traMADol HCL 50 mg PO Q8H PRN 03/06/24 03/06/24 Previous Rx's Medication Instructions Recorded predniSONE [Deltasone] 40 mg PO DAILY #10 tab 03/06/24 Allergies Allergy/AdvReac Type Severity Reaction Status Date / Time No Known Allergies Allergy Verified 09/15/24 19:39 Review of Systems ROS Statement: Those systems with pertinent positive or pertinent negative responses have been documented in the HPI. ROS Other: All systems not noted in ROS Statement are negative. Past Medical History Past Medical History: Cancer Additional Past Medical History / Comment(s): crohns disease, narcolepsy, VARICOSE VEIN, Breast CA. History of Any Multi-Drug Resistant Organisms: None Reported Past Surgical History: Section Additional Past Surgical History / Comment(s): colonoscopy Past Anesthesia/Blood Transfusion Reactions: No Reported Reaction Past Psychological History: No Psychological Hx Reported Smoking Status: Former smoker Past Alcohol Use History: Occasional Past Drug Use History: Marijuana - Past Family History Mother Family Medical History: No Reported History General Exam Limitations: no limitations General appearance: alert, in no apparent distress Head exam: Present: atraumatic, normocephalic, normal inspection Eye exam: Present: normal appearance, EOMI Neck exam: Present: normal inspection. Absent: meningismus Respiratory exam: Absent: respiratory distress Cardiovascular Exam: Present: regular rate Left Knee exam: Present: full ROM, tenderness, swelling Neurovascular tendon exam: Present: no vascular compromise Neurological exam: Present: alert, oriented X3 Psychiatric exam: Present: normal affect, normal mood Skin exam: Present: warm, dry, normal color Course Vital Signs 09/15/24 09/15/24 19:34 22:48 Temperature 97.9 F 97.6 F Pulse Rate 79 82 Respiratory 18 18 Rate Blood Pressure 161/97 138/90 O2 Sat by Pulse 96 98 Oximetry Medical Decision Making - Medical Decision Making Was pt. sent in by a medical professional or institution (, PA, EMERGENCY RESPONSE COORDINATOR, urgent care, hospital, or intermediate...) When possible be specific @ -Urgent care Did you speak to anyone other than the patient for history (EMS, parent, family, police, friend...)? What history was obtained from this source @ -No Did you review nursing and triage notes (agree or disagree)? Why? @ -I reviewed and agree with nursing and triage notes Were old charts reviewed (outside hosp., previous admission, EMS record, old EKG, old radiological studies, urgent care reports/EKG's, intermediate records)? Report findings @ -No old charts were reviewed Differential Diagnosis (chest pain, altered mental status, abdominal pain women, abdominal pain men, vaginal bleeding, weakness, fever, dyspnea, syncope, headache, dizziness, GI bleed, back pain, seizure, CVA, palpatations, mental health, musculoskeletal)? @ -Differential Musculoskeletal Muscular strain, contusion, ligament sprain, fracture, arthritis, septic arthritis, bursitis, cellulitis, muscle spasm, nerve compression, DVT, arterial occlusion, herpes zoster, electrolyte abnormality, tumor.... This is not meant to be in all inclusive list EKG interpreted by me (3pts min.). @ -As above X-rays interpreted by me (1pt min.). @ -None done CT interpreted by me (1pt min.). @ -None done U/S interpreted by me (1pt. min.). @ -Ultrasound is negative for DVT What testing was considered but not performed or refused? (CT, X-rays, U/S, labs)? Why? @ -X-ray considered, however patient had an x-ray at urgent care which was negative and did not wish to repeat it What meds were considered but not given or refused? Why? @ -None Did you discuss the management of the patient with other professionals (professionals i.e. DrShadia, PA, EMERGENCY RESPONSE COORDINATOR, lab, RT, psych nurse, administrator social welfare, solar thermal installer, teacher, customs and border protection officer, watch caser)? Give summary @ -No Was smoking cessation discussed for >3mins.? @ -No Was critical care preformed (if so, how long)? @ -No Were there social determinants of health that impacted care today? How? (Homelessness, low income, unemployed, alcoholism, drug addiction, transportation, low edu. Level, literacy, decrease access to med. care, usp, rehab)? @ -No Was there de-escalation of care discussed even if they declined (Discuss DNR or withdrawal of care, Hospice)? DNR status @ -No What co-morbidities impacted this encounter? (DM, HTN, Smoking, COPD, CAD, Cancer, CVA, ARF, Chemo, Hep., AIDS, mental health diagnosis, sleep apnea, morbid obesity)? @ -None Was patient admitted / discharged? Hospital course, mention meds given and route, prescriptions, significant lab abnormalities, going to OR and other pertinent info. @ -54-year-old female presenting with chief complaint of left knee pain and swelling. No injury or trauma. Patient is neurovascularly intact. Was sent by urgent care to rule out DVT. She had an x-ray performed there which shows negative for acute process she reports. Ultrasound is negative for DVT. Patient is educated on today's findings and supportive management. Follow-up with orthopedics. Follow-up with PCP. Report back to ER with any new or worsening symptoms. Discussed return parameters and answered all questions. Patient conveyed verbal understanding and agreed to the plan. I discussed this case in detail with my attending Dr. Pritchett Undiagnosed new problem with uncertain prognosis? @ -No Drug Therapy requiring intensive monitoring for toxicity (Heparin, Nitro, Insulin, Cardizem)? @ -No Were any procedures done? @ -No Diagnosis/symptom? @ -Knee pain Acute, or Chronic, or Acute on Chronic? @ -Acute Uncomplicated (without systemic symptoms) or Complicated (systemic symptoms)? @ -Uncomplicated Side effects of treatment? @ -No Exacerbation, Progression, or Severe Exacerbation? @ -No Poses a threat to life or bodily function? How? (Chest pain, USA, MS, pneumonia, PE, COPD, DKA, ARF, appy, cholecystitis, CVA, Diverticulitis, Homicidal, Suicidal, threat to staff... and all critical care pts) @ -Unlikely Disposition Clinical Impression: Knee pain Disposition: HOME SELF-CARE Condition: Good Instructions (If sedation given, give patient instructions): Knee Pain (ED) Additional Instructions: Follow-up with PCP and orthopedics. Report back to ER with any new or worsening symptoms. Is patient prescribed a controlled substance at d/c from ED?: No Referrals: Paul Mederos MD [Primary Care Provider] - 1-2 days Pedro Luis Brown DO [Doctor of Osteopathic Medicine] - 1-2 days Time of Disposition: 21:48
[2024-09-15] MEDS: ACET/COD 300 MG/30 MG STARTER PACK 6 TAB BTL PO STA (22:44)
[2024-09-15 23:03] VITALS: BP 138/90; PULSE 82; TEMP 97.6
== END 2024-09-15 22:50 | disposition home or self-care (01) ==
LOC: EC 19:19
DX: M25.562 Pain in left knee (principal); Z87.891 Personal history of nicotine dependence
CPT/HCPCS: 99284

== ENCOUNTER → 2024-09-20 | Outpatient (CLI) | payer BC ==
--- NOTE | 2024-09-20 14:21 | US ---
EXAMINATION TYPE: US extremity nonvasc mass LT DATE OF EXAM: 09/20/2024 COMPARISON: NONE CLINICAL INDICATION: Female, 54 years old with history of R22.42 LOCALIZED SWELLING, MASS AND LUMP, L EFT LOW; Pain/swelling x 1 week anterior and posterior knee. Hx breast cancer that spread to lymph no cynthia and bones. TECHNIQUE: Scanned left anterior and posterior knee. FINDINGS: Anechoic fluid-appearing area seen anterior superior-mid knee: 7.3 x 6.8 x 0.7 cm. Measure ment is limited due to difficulty scanning across patella in transverse. IMPRESSION: Fluid collection superior to the knee etiology uncertain. Possibly postop seroma versus resolving hem atoma versus other correlate with history. [facility], , 09/20/2024 2:19 PM
== END | disposition home or self-care (01) ==
LOC: RADUSWWP 13:16
PROVIDERS: ATTEND Internal Medicine
DX: C50.419 Malignant neoplasm of upper-outer quadrant of unspecified female breast (principal); R22.42 Localized swelling, mass and lump, left lower limb; M79.89 Other specified soft tissue disorders

== ENCOUNTER → 2024-10-05 | Outpatient (CLI) | payer BC ==
--- NOTE | 2024-10-08 13:27 | PE ---
EXAMINATION TYPE: PET CT fusion skull to thigh DATE OF EXAM: 10/05/2024 COMPARISON: No recent pertinent CT. Prior PET/CT: 06/22/2024, 11/26/2023 CLINICAL INDICATION: Female, 54 years old with history of C50.412 BREAST CANCER, TECHNIQUE: Following the intravenous administration of 11.40 mCi of F-18 FDG, whole body images are performed from the skull base to the midthigh. Images are reviewed on the computer in the coronal, a xial, and sagittal planes. Reconstructed rotating images are created on independent workstation and reviewed on the computer. A localization and attenuation correction CT is performed in conjunction with the PET scan. DLP: 681.05 mGycm SCAN: Subsequent Blood glucose: 91 mg/dL Average Mediastinum SUV: 1.67 Average Liver SUV: 2.47 FINDINGS: NECK: No abnormal uptake THORAX: There is some faint uptake within the right hilar region. A small right hilar lymph node may be present, image 90, SUV 3.85. This is elevated may be suspicious for metastatic lesion. ABDOMEN: No abnormal uptake PELVIS: No abnormal uptake OSSEOUS STRUCTURES: No abnormal uptake LOCALIZATION CT: There is mild thickening of the left breast skin tissue. There is a focal density wi thin the outer right breast, image 123. Correlate with mammographic findings. COMPARISON: Uptake within the right hilar region appears new or recurrent IMPRESSION: 1. Tiny solitary focus of mild increased uptake in the right hilar region recurrent or metastatic dis ease could be considered. Inflammatory change while considered less likely, is within the differentia l. 2. No additional suspicious uptake to suggest metastatic disease. 3. Soft tissue changes with skin thickening in the left breast. 4. Nodular density within the lateral right breast present previously may be slightly larger. Correla tion with diagnostic mammogram recommended. [facility], Workstation: [facility], 10/08/2024 1:25 PM
== END | disposition home or self-care (01) ==
LOC: RADPETMAIN 15:28
PROVIDERS: ATTEND Internal Medicine
DX: C50.412 Malignant neoplasm of upper-outer quadrant of left female breast (principal); R23.4 Changes in skin texture; Z85.3 Personal history of malignant neoplasm of breast
CPT/HCPCS: 78815; A9552

== ENCOUNTER → 2024-10-12 | Outpatient (CLI) | payer BC ==
--- NOTE | 2024-10-12 22:03 | MR ---
EXAMINATION TYPE: MR hip LT wo con DATE OF EXAM: 10/12/2024 11:59 AM COMPARISON: Prior PET/CT October 05, 2024 CLINICAL INDICATION: Female, 54 years old with history of M25.552 PAIN IN LEFT HIP, history of breast cancer. IV Contrast: cc (None if empty) Standard multiplanar, multisequence MRI departmental protocol Multiplanar, multisequence images of the pelvis focusing on the left hip were acquired without contra st. Diffusion weighted imaging was performed. FINDINGS: Symmetric moderate axial joint space loss in both hips with mild/moderate acetabular spurri ng bilaterally. Small hip joint effusions are seen bilaterally. Spherical shape to the femoral head i s maintained bilaterally. There is increased T2 signal throughout the left femoral neck extending to the intertrochanteric level. No serpiginous diminished T1 signal to suggest avascular necrosis. Tiny subchondral cystic change about the left femoral head and neck are present. Bilateral intramuscular e tito particularly medial muscles of the thighs is seen. There is [id number] anterior subcutaneo us edema noted bilaterally. There is small to moderate-size left groin hernia containing small amount of fluid. Muscle bulk is maintained bilaterally. No groin adenopathy is seen. Moderate amount of free fluid in the pelvis is present. The uterus is seen with 3.3 cm right sided fi broid. No abnormal bowel dilatation. IMPRESSION: 1. Moderate degenerative changes in both hips as detailed above. Asymmetric abnormal bone marrow cliff a and subchondral cystic change of the femoral neck of the left hip is noted. Medial intramuscular ed john is present bilaterally. Subcutaneous edema is noted. Left groin hernia is present. [facility], , 10/12/2024 10:01 PM
== END | disposition home or self-care (01) ==
LOC: RADMRIMAIN 11:10
PROVIDERS: ATTEND Orthopaedic Surgery
DX: R60.9 Edema, unspecified (principal); M25.552 Pain in left hip; Z85.3 Personal history of malignant neoplasm of breast

== ENCOUNTER → 2024-12-05 | Outpatient (CLI) | payer BC ==
--- NOTE | 2024-12-06 07:21 | MR ---
EXAMINATION TYPE: MR knee LT wo con DATE OF EXAM: 12/05/2024 COMPARISON: Outside left knee x-ray October 06, 2024 HISTORY: left knee pain and swelling for a few months TECHNIQUE: Multiplanar, multisequence images of the knee is performed without IV contrast. FINDINGS: MEDIAL MENISCUS: Some increased signal anterior horn may extend to the superior articular surface. LATERAL MENISCUS: Anterior and posterior horns are intact without tear. CRUCIATE LIGAMENTS: The anterior and posterior cruciate ligaments are intact and unremarkable. COLLATERAL LIGAMENTS: The medial collateral ligament is intact and unremarkable. There is tear throug h the lateral collateral ligament complex particularly the anterior proximal portion. EXTENSOR MECHANISM: Visualized quadriceps and patellar tendons are intact. EFFUSION: Small size suprapatellar joint effusion. POPLITEAL CYST: No popliteal/rivera cyst. Ill-defined fluid medial to the popliteal space surrounding the posterior muscles and vessels. TRICOMPARTMENT SPACES: Mild to moderate tricompartment joint space loss. Mild spurring patellofemoral compartment. CARTILAGE: Tricompartmental cartilage is fairly well preserved. BONE MARROW SIGNAL: Heterogeneous increased T2 signal lateral aspect of the lateral tibiofemoral comp artment. Reference sagittal image 9. OTHER: No additional significant abnormality is appreciated. IMPRESSION: 1. Significant tearing of the proximal portion of the lateral collateral ligament complex. 2. At least intrasubstance tear suspected full-thickness tear anterior horn of the lateral meniscus. 3. Mild multi compartment degenerative changes are present as detailed above. 4. Small area of abnormal bone marrow edema lateral aspect lateral tibial femoral compartment. 5. Small sized joint effusion. 6. Ill-defined fluid posteriorly could reflect product of ruptured Rivera's cyst. [facility], , 12/06/2024 7:18 AM
== END | disposition home or self-care (01) ==
LOC: RADMRIMAIN 19:14
PROVIDERS: ATTEND Orthopaedic Surgery
DX: S83.282A Other tear of lateral meniscus, current injury, left knee, initial encounter (principal); M17.12 Unilateral primary osteoarthritis, left knee; M25.462 Effusion, left knee; M66.0 Rupture of popliteal cyst; X58.XXXA Exposure to other specified factors, initial encounter

== ENCOUNTER → 2025-01-30 | Outpatient (CLI) | payer BC | END | disposition home or self-care (01) | LOC: LABPAT 14:45 | PROVIDERS: ATTEND Orthopaedic Surgery | DX: Z01.818 Encounter for other preprocedural examination (principal); M23.92 Unspecified internal derangement of left knee | CPT/HCPCS: 93005 ==

== ENCOUNTER 2025-02-01 12:14 | Day surgery (SDC) | payer BC ==
[2025-01-29 14:05] VITALS: BMI 25.8
--- NOTE | 2025-01-31 13:52 | HP ---
HISTORY AND PHYSICAL DATE OF SURGERY: 02/01/2025. HISTORY OF PRESENT ILLNESS: Svetlana Manuel is a 54-year-old patient seen with progressive left knee pain. We discussed options regarding treatment. She elected to proceed with left knee arthroscopy. Consent was obtained. PAST MEDICAL HISTORY: Crohn disease, lymphedema. PAST SURGICAL HISTORY: section. DAILY MEDICATIONS: 1. Adderall. 2. Tramadol. ALLERGIES: None. SOCIAL HISTORY: She denies tobacco use. PHYSICAL EVALUATION OF THE LEFT KNEE: Range of motion is -1/2 to 110 degrees. She has a moderate effusion. Tenderness, medial joint line. Positive medial Giorgi's. Ligaments stable. Hip rotation without pain. Distal neurovascular exam intact. IMAGING STUDIES: Left knee radiographs revealed mild osteoarthritis. Left knee MRI revealed medial meniscal tear. Mild osteoarthritis. Ruptured Rivera cyst. IMPRESSION: Internal derangement of left knee with medial meniscal tear. PLAN: Left knee arthroscopy with partial medial meniscectomy and debridement. MMODL / IJN: [id number] /
[~2025-02-01 12:14] MED LIST changes: +droPERidol 2.5 MG/ML VIAL IVP ONE
[2025-02-01] MEDS: IV FLUID CONTINUATION 1,000 ML IV ONE (12:28)
[2025-02-01] MEDS: ONDANSETRON 4 MG/2 ML VIAL IVP ONE (12:57)
[2025-02-01] MEDS: DEXAMETHASONE SOD PHOSPHATE 4 MG/ML 1 ML VIAL IV ONE (12:57)
[2025-02-01] MEDS ORDERED: LIDOCAINE 1% INJ 10MG/ML (20 ML MDV) ONE (13:45)
[2025-02-01] MEDS ORDERED: fentaNYL (PF) 50 MCG/ML 2 ML AMP ONE (13:45)
[2025-02-01] MEDS ORDERED: PROPOFOL 10 MG/ML 20 ML VIAL IV ONE (13:45)
[2025-02-01] MEDS ORDERED: MIDAZOLAM 2 MG/2 ML VIAL ONE (13:45)
[2025-02-01] MEDS: BUPIVACAINE (PF) 0.25% 30 ML VIAL SQ ONE ×2 (13:47→14:07)
[2025-02-01 14:52] VITALS: TEMP 97.3
--- NOTE | 2025-02-01 14:56 | P.OP ---
Date of Procedure: 02/01/25 Preoperative Diagnosis: Internal derangement left knee Postoperative Diagnosis: 1. Tear medial and lateral meniscus left knee 2. Grade IV chondromalacia medial femoral condyle left knee 3. Reactive synovitis medial, lateral and suprapatellar compartments left knee 4. Grade III chondromalacia lateral tibial plateau left knee 5. Grade II chondromalacia patella left knee Procedure(s) Performed: 1. Arthroscopic partial medial and lateral meniscectomy left 2. Arthroscopic microfracture medial femoral condyle left knee 3. Arthroscopic partial synovectomy medial, lateral and suprapatellar compartments left knee 4. Arthroscopic chondroplasty lateral tibial plateau left knee 5. Arthroscopic chondroplasty patella left knee Anesthesia: DIXIEA, local Surgeon: Pedro Luis Brown Estimated Blood Loss (ml): 7 Pathology: none sent Condition: stable Disposition: PACU Indications for Procedure: 54-year-old patient seen with progressive left knee pain. After having treatment options discussed, she elected to proceed with arthroscopy. Operative Findings: See description of procedure Description of Procedure: Patient was taken to the operative suite. Patient underwent a general anesthetic by the department of anesthesia. Patient was given preoperative antibiotics. The left lower extremity was placed in a well-padded arthroscopic leg silverio. The left leg was prepped and draped in the normal sterile orthopedic fashion. A lateral parapatellar and suprapatellar incision was made. Trochars were inserted. Arthroscopy was initiated. Suprapatellar pouch revealed diffuse thick reactive synovitis. The patellofemoral joint appeared to articulate congruently. There was grade II chondromalacia of the patella with osteochondral flap tears. The scope was guided into the medial gutter. No loose bodies or plica were identified the scope was then guided into the medial compartment. A medial parapatellar incision was made. Trocar inserted followed by probe. There was a radial tear posterior medial meniscus. There was an area of grade III/IV chondromalacia medial femoral condyle with some osteochondral flap tears present. There was some thick reactive synovitis anteriorly. I performed a partial lateral meniscectomy getting down to stable meniscal tissue. I performed a chondroplasty of the patella getting down to stable osteochondral tissue. I performed a partial synovectomy decompressing the thick reactive synovitis. There was an area of grade IV chondromalacia medial femoral condyle with an area of exposed bone measuring less than a centimeter. I introduced a microfracture awl and I performed a microfracture to that area penetrating the bone with resultant bleeding at the microfracture site. The residual meniscus was stable. The residual osteochondral surface was stable. There was good decompression of the synovitis. Scope and probe were then guided into the intercondylar notch. Cruciates were identified, probed and found to be stable. The scope and probe were then guided into lateral compartment. There was a complex tear involving the posterior horn lateral meniscus. There was an area of grade II/III chondromalacia lateral tibial plateau with osteochondral flap tears present. There was thick reactive synovitis anteriorly. I performed a partial lateral meniscectomy getting down to stable meniscal tissue. I performed a chondroplasty of the lateral tibial plateau getting out of stable osteochondral tissue. I performed a partial synovectomy decompressing the reactive synovitis. The residual meniscus was stable. The residual osteochondral surface was stable. There was good decompression of the synovitis. The scope was in guided back into the suprapatellar compartment. I introduced a motorized shaver into the suprapatellar compartment. I debrided some piecemeal fragments of meniscus that I encountered. I performed a partial synovectomy. I performed a chondroplasty of the patella getting down to stable osteochondral tissue. The shaver was removed. There was good decompression of the synovitis. The residual osteochondral surface of the patella was stable again noting grade II chondromalacia. I took 1 more look around the entire knee no residual debris. Instruments were now removed from the joint. The joint was infiltrated with .25% Marcaine. Steri-Strips were applied to the portal sites. Sterile dressings were applied. The patient was placed into a ROBERTO CARLOS hose. No tourniquet was utilized. The patient was awakened, transferred to a bed and taken to recovery stable satisfactory condition.
[2025-02-01] MEDS: hydrALAZINE HCL 20 MG/ML 1 ML VIAL IVP PRN (15:15)
[2025-02-01] MEDS: HYDROmorphone 0.5 MG/0.5 ML SYRINGE IVP PRN (15:21)
[2025-02-01] MEDS: LACTATED RINGERS 1,000 ML IV ONE (15:41)
[2025-02-01 16:11] VITALS: BP 162/84; PULSE 84; RESP 18
== END 2025-02-01 17:00 | disposition home or self-care (01) ==
LOC: OR 12:14
PROVIDERS: ATTEND Orthopaedic Surgery
DX: S83.272A Complex tear of lateral meniscus, current injury, left knee, initial encounter (principal); S83.242A Other tear of medial meniscus, current injury, left knee, initial encounter; M17.12 Unilateral primary osteoarthritis, left knee; M65.862 Other synovitis and tenosynovitis, left lower leg; M94.262 Chondromalacia, left knee; K50.90 Crohn's disease, unspecified, without complications; G47.419 Narcolepsy without cataplexy; Z79.899 Other long term (current) drug therapy; Z87.891 Personal history of nicotine dependence; Z85.3 Personal history of malignant neoplasm of breast
CPT/HCPCS: 29880; 29879; 29876; J0360; J1100; J0690; J2405; J1171; J0665

== ENCOUNTER → 2025-02-23 | Outpatient (CLI) | payer BC ==
--- NOTE | 2025-02-25 08:57 | PE ---
EXAMINATION TYPE: PET CT fusion skull to thigh DATE OF EXAM: 02/23/2025 CLINICAL INDICATION:Female, 54 years old with history of C50.812 breast ca; TECHNIQUE: Following the intravenous administration of 7.68 mCi of F-18 FDG, whole body images are performed from the skull base to the midthigh. Images are reviewed on the computer in the coronal, a xial, and sagittal planes. Reconstructed rotating images are created on independent workstation and reviewed on the computer. A non-contrast CT is performed in conjunction with the PET scan. Glucose level 88 mg/dL CT DLP: 646.71 mGycm, Automated exposure control for dose reduction was used. COMPARISON: CT 03/30/2024, PET/CT 10/05/2024, 07/12/2024, 04/09/2024, 11/26/2023, MRI: 06/19/2024 FINDINGS: Mediastinal SUV mean is 1.6. Hepatic parenchyma SUV mean is 2.1. SKULL BASE AND NECK: No suspicious radiotracer activity. CHEST, MEDIASTINUM, AND HILAR REGION: Left breast skin thickening redemonstrated. No suspicious focal uptake above background levels. Mildly FDG avid non-enlarged subcarinal lymph node redemonstrated with a max SUV of 4.0, previously 2 .8. Redemonstration of a right pulmonary hilar lymph node with a maximum SUV of 4.3, previously 3.9. ABDOMEN AND PELVIS: No suspicious radiotracer activity. MUSCULOSKELETAL STRUCTURES: Redemonstration of sclerotic osseous lesions throughout the spine, ribs, left proximal femur. No FDG activity above background. Consistent with treated metastasis. OTHER CT: Bilateral carotid bulb calcification with left greater than right. Multinodular thyroid gla nd with a dominant left thyroid 1.5 cm nodule suggested. Right chest IJ approach Mediport catheter di stal tip terminating in the mid SVC. Cardiomegaly. Trace pericardial effusion. Elevation of the right hemidiaphragm. Multilevel degenerative changes of the spine. Mild dextrocurvature of the thoracolumb ar spine. Small bilateral inguinal hernias containing fluid. Pelvic phleboliths. Tiny fat filled umbi lical hernia. IMPRESSION: 1. Posttreatment changes of the left breast with skin thickening. No suspicious FDG activity above b ackground. 2. Similar mild FDG uptake within lymph nodes in the right hilar region and subcarinal region. Etiol ogies include recurrent or metastatic disease versus reactive lymph nodes. 3. Redemonstration of sclerotic osseous metastatic lesions without FDG activity above background. Co nsistent with treated metastasis. [facility], , 02/25/2025 8:55 AM
== END | disposition home or self-care (01) ==
LOC: RADPETMAIN 08:56
PROVIDERS: ATTEND Internal Medicine
DX: C50.812 Malignant neoplasm of overlapping sites of left female breast (principal); C79.51 Secondary malignant neoplasm of bone; R23.4 Changes in skin texture; K40.20 Bilateral inguinal hernia, without obstruction or gangrene, not specified as recurrent
CPT/HCPCS: 78815; A9552

== ENCOUNTER 2025-04-25 06:53 | Day surgery (SDC) | payer BC ==
[2025-04-23 16:09] VITALS: BMI 26.3
[2025-04-25] MEDS: IV FLUID CONTINUATION 1,000 ML IV ONE (07:18)
[2025-04-25 07:38] VITALS: TEMP 98
[2025-04-25] MEDS: LACTATED RINGERS 1,000 ML IV SCH (07:38)
[2025-04-25] MEDS ORDERED: PROPOFOL 10 MG/ML 20 ML VIAL IV ONE (07:52)
[2025-04-25] MEDS ORDERED: LIDOCAINE 1% INJ 10MG/ML (20 ML MDV) ONE (07:52)
--- NOTE | 2025-04-25 08:11 | P.PCN ---
Date of Procedure: 04/25/25 Procedure(s) Performed: BRIEF HISTORY: Patient is a 51-year-old pleasant white female scheduled for an elective colonoscopy as a part of screening for longstanding history of Crohn's ileitis diagnosed in 2009. She was maintained on azathioprine 100 mg daily but this was discontinued in December 2023 when she was diagnosed with metastatic breast cancer. Currently she is not on any maintenance medications. Lately has been having 2-3 soft loose bowel movements daily with occasional with occasional rectal urgency and bleeding. She is scheduled for colonoscopy to evaluate further . PROCEDURE PERFORMED: Colonoscopy with biopsy. PREOPERATIVE DIAGNOSIS: Longstanding history of Crohn's ileitis. IV sedation per Anesthesia. PROCEDURE: After informed consent was obtained, the patient, was brought into the endoscopy unit. IV sedation was administered by Anesthesia under continuous monitoring. Digital rectal examination was normal. Initially the Olympus CF-160 flexible video colonoscope was then inserted in the rectum, gradually advanced into the cecum without any difficulty. Careful examination was performed as the scope was gradually being withdrawn. Ileocecal valve and the appendiceal orifice were visualized and appeared normal. Prep was excellent. Ileocecal valve was visualized and appeared narrowed and despite multiple attempts I was not able to advance the scope into the terminal ileum. Part of the mucosa of the terminal ileum was visualized and appeared normal. Random biopsies were done from this area. Mucosa of the cecum, ascending colon, transverse colon, descending colon, sigmoid colon, and rectum appeared normal. Random biopsies were done from the ascending and descending colon rule out microscopic/collagenous colitis. Retroflexion was performed in the rectum and no lesions were seen. The patient tolerated the procedure well. IMPRESSION: Normal-appearing colon from rectum to cecum with no evidence of colitis or colorectal neoplasia Narrowing of the terminal ileum and the scope could not be advanced into the terminal ileum. RECOMMENDATIONS: Findings of this examination were discussed with the patient as well as her family. She was advised to follow with the biopsy results. Recommend repeat colonoscopy in 5 years. Follow-up in the office in 2 to 3 weeks..
[2025-04-25 08:22] VITALS: RESP 16
[2025-04-25 08:39] VITALS: BP 144/85; PULSE 66
== END 2025-04-25 09:36 | disposition home or self-care (01) ==
LOC: ORWHC2ENDO 06:53
PROVIDERS: ATTEND Internal Medicine Gastroenterology
DX: K52.9 Noninfective gastroenteritis and colitis, unspecified (principal); K50.80 Crohn's disease of both small and large intestine without complications; Z79.624 Long term (current) use of inhibitors of nucleotide synthesis
CPT/HCPCS: 88305; 45380; J2003; J2704